=== PATIENT | male | born 1980 | race African-American/Black ===

== ENCOUNTER → 2017-09-30 | Outpatient (CLI) | payer MEDICARE, OTHER ==
[2017-09-30 08:31] LABS: Basophils % (A) 1 %; CH 30.2; CHCM 35.1; Eosinophils # (A) 0.3 k/uL (0-0.7); Eosinophils % (A) 6 %; HCT 40.7 % (39.0-53.0); HGB 13.5 gm/dL (13.0-17.5); Luc # (Auto) 0.09; Luc % (Auto) 2; Lymphocytes # (A) 1.2 k/uL (1.0-4.8); Lymphocytes % (A) 28 %; MCH 28.7 pg (25.0-35.0); MCHC 33.2 g/dL (31.0-37.0); MCV 86.3 fL (80.0-100.0); Mean Platelet Volume 6.6; Monocytes # (A) 0.3 k/uL (0-1.0); Monocytes % (A) 6 %; Neutrophils # (A) 2.5 k/uL (1.3-7.7); Neutrophils % (A) 57 %; RBC 4.72 m/uL (4.30-5.90); RDW 11.8 % (11.5-15.5); WBC 4.4 k/uL (3.8-10.6); WBC (Perox) 4.34
[2017-09-30 08:44] LABS: ALT 56 U/L (21-72); AST 31 U/L (17-59); Alkaline Phosphatase 70 U/L (38-126); Anion Gap 10 mmol/L; Bilirubin, Delta 0.1 mg/dL (0.0-0.2); Blood Urea Nitrogen 20 mg/dL (9-20); Carbon Dioxide 31 mmol/L (22-30); Chloride 103 mmol/L (98-107); Glucose 93 mg/dL (74-99); Non-African American GFR(MDRD) >60 (>60 ml/min/1.73 sqM); Potassium 4.3 mmol/L (3.5-5.1); Sodium 144 mmol/L (137-145); Total Bilirubin 0.9 mg/dL (0.2-1.3); Total Protein 7.5 g/dL (6.3-8.2)
== END | disposition home or self-care (01) ==
LOC: LABWHC1 07:50
PROVIDERS: ATTEND Nurse Practitioner Family
DX: Z51.81 Encounter for therapeutic drug level monitoring (principal); Z79.899 Other long term (current) drug therapy
CPT/HCPCS: 36415; 80048; 80076; 83036; 85025

== ENCOUNTER → 2018-09-19 | Outpatient (CLI) | payer MEDICARE, OTHER ==
[2018-09-19 14:52] LABS: Basophils % (A) 0 %; Eosinophils # (A) 0.2 k/uL (0-0.7); Eosinophils % (A) 5 %; HCT 36.1 % (39.0-53.0); HGB 12.5 gm/dL (13.0-17.5); Lymphocytes # (A) 1.5 k/uL (1.0-4.8); Lymphocytes % (A) 34 %; MCH 29.7 pg (25.0-35.0); MCHC 34.6 g/dL (31.0-37.0); Mean Platelet Volume 6.9; Monocytes # (A) 0.3 k/uL (0-1.0); Monocytes % (A) 7 %; Neutrophils # (A) 2.3 k/uL (1.3-7.7); Neutrophils % (A) 51 %; Platelet Count 164 k/uL (150-450); RDW 12.2 % (11.5-15.5); WBC 4.5 k/uL (3.8-10.6)
[2018-09-19 21:45] LABS: Hemoglobin A1C 4.7 % (4.0-6.0)
[2018-09-19 21:48] LABS: Albumin 4.3 g/dL (3.80-4.90); Albumin/Globulin Ratio 2.05 (1.20-2.10); Anion Gap 8.2 mmol/L (4.00-12.00); Bilirubin, Conjugated 0.2 mg/dL (0.20-0.40); Bilirubin,Unconjugated 0.3 mg/dL; Calcium 9.2 mg/dL (8.7-10.3); Carbon Dioxide 27.8 mmol/L (21.6-31.8); Globulin 2.1 g/dL (2.1-3.7); Potassium 4.1 mmol/L (3.5-5.5); Total Bilirubin 0.5 mg/dL (0.2-1.2); Total Protein 6.4 g/dL (6.2-8.2)
== END | disposition home or self-care (01) ==
LOC: LABWHC1 14:16
PROVIDERS: ATTEND Nurse Practitioner Family
DX: Z51.81 Encounter for therapeutic drug level monitoring (principal); Z79.899 Other long term (current) drug therapy
CPT/HCPCS: 36415; 80048; 80076; 83036; 85025

== ENCOUNTER → 2020-04-30 | Outpatient (CLI) | payer MEDICARE, OTHER ==
[2020-04-30 10:42] LABS: Basophils % (A) 0 %; Eosinophils # (A) 0.2 k/uL (0-0.7); Eosinophils % (A) 4 %; HCT 41.1 % (39.0-53.0); HGB 13.1 gm/dL (13.0-17.5); Lymphocytes # (A) 1.3 k/uL (1.0-4.8); Lymphocytes % (A) 30 %; MCH 27.9 pg (25.0-35.0); MCHC 31.8 g/dL (31.0-37.0); MCV 87.5 fL (80.0-100.0); Mean Platelet Volume 7.7; Monocytes # (A) 0.3 k/uL (0-1.0); Monocytes % (A) 8 %; Neutrophils # (A) 2.5 k/uL (1.3-7.7); Neutrophils % (A) 57 %; Platelet Count 158 k/uL (150-450); RDW 11.8 % (11.5-15.5); WBC 4.4 k/uL (3.8-10.6)
[2020-04-30 18:31] LABS: Hemoglobin A1C 4.7 % (4.0-6.0)
[2020-04-30 19:03] LABS: African American GFR (CKD) 125.1 (60.0-200.0); Albumin 4.5 g/dL (3.80-4.90); Albumin/Globulin Ratio 1.8 (1.60-3.17); Bilirubin, Conjugated 0.3 mg/dL (0.20-0.40); Bilirubin,Unconjugated 0.6 mg/dL; Chol/HDL Ratio 3.54; Globulin 2.5 g/dL (1.6-3.3); LDL Cholesterol,Calculated 78.6 mg/dL (0.0-131.0); Total Bilirubin 0.9 mg/dL (0.3-1.2); VLDL Calculation 15.4 mg/dL (5.00-40.00)
[2020-04-30 19:13] LABS: Prolactin 43.6 ng/mL (2.1-17.7); T4, Free (Free Thyroxine) 1.1 ng/dL (0.80-1.80)
== END | disposition home or self-care (01) ==
LOC: LABWHC1 08:43
PROVIDERS: ATTEND Nurse Practitioner Family
DX: Z51.81 Encounter for therapeutic drug level monitoring (principal); Z79.899 Other long term (current) drug therapy
CPT/HCPCS: 36415; 80061; 80076; 82565; 82947; 83036; 84146; 84439; 84443; 84520; 85025

== ENCOUNTER → 2021-03-13 | Outpatient (CLI) | payer MEDICARE, OTHER ==
--- NOTE | 2021-03-13 11:10 | XR ---
EXAMINATION TYPE: XR hand complete RT DATE OF EXAM: 03/13/2021 CLINICAL HISTORY: pain TECHNIQUE: Frontal, lateral and oblique images of the right hand are obtained. COMPARISON: None. FINDINGS: There is no acute fracture/dislocation evident. The joint spaces appear within normal limi ts. The overlying soft tissue appears unremarkable. IMPRESSION: There is no acute fracture or dislocation ICD 10 NO FRACTURE, INITIAL EVALUATION
== END | disposition home or self-care (01) ==
LOC: RADXRMAIN 10:50
PROVIDERS: ATTEND Family Medicine
DX: M79.641 Pain in right hand (principal)

== ENCOUNTER 2022-06-18 23:03 | Emergency (ER) | payer MEDICARE, OTHER ==
[2022-06-19] MEDS ORDERED: diphenhydrAMINE 50 MG/ML 1 ML VIAL IVP STA (00:27)
[2022-06-19] MEDS ORDERED: LORazepam 2 MG/ML INJ IV STA (00:27)
[2022-06-19 01:23] LABS: Calcium 9.1 mg/dL (8.4-10.2); Potassium 3.9 mmol/L (3.5-5.1); Total Bilirubin 0.5 mg/dL (0.2-1.3); Total Protein 6.5 g/dL (6.3-8.2); Uric Acid 6.4 mg/dL (3.5-8.5)
[2022-06-19 01:33] VITALS: RESP 16
--- NOTE | 2022-06-19 03:03 | ED ---
Psych HPI - General Chief Complaint: Psychiatric Symptoms Stated Complaint: Mental health Time Seen by Provider: 06/18/22 23:20 Source: family, police, EMS Mode of arrival: EMS - History of Present Illness Initial Comments: This patient is a 41-year-old man with history of autism who is brought because going back a number of weeks he has had increasing frequency of episodes of hitting himself. The patient will get stressed when dealing with staff at his [facility] home and then resort to striking objects or sometimes striking himself. He does have history of this but it has been more frequent of late. No change in medications recently. MD Complaint: other -: week(s) Associated Psychiatric Symptoms: other History of same: Yes Quality: getting worse Improves With: none Worsens With: none - Related Data Allergies Allergy/AdvReac Type Severity Reaction Status Date / Time No Known Allergies Allergy Verified 06/18/22 23:15 Review of Systems ROS Statement: Those systems with pertinent positive or pertinent negative responses have been documented in the HPI. ROS Other: All systems not noted in ROS Statement are negative. Constitutional: Denies: fever Respiratory: Denies: cough, dyspnea Cardiovascular: Denies: syncope Gastrointestinal: Denies: vomiting, diarrhea Skin: Denies: rash Past Medical History Additional Past Medical History / Comment(s): Autism History of Any Multi-Drug Resistant Organisms: None Reported Past Surgical History: No Surgical Hx Reported Past Psychological History: Anxiety Smoking Status: Never smoker Past Alcohol Use History: None Reported Past Drug Use History: None Reported General Exam Limitations: language barrier General appearance: alert, in no apparent distress Head exam: Present: atraumatic, normocephalic Eye exam: Present: normal appearance Neck exam: Present: normal inspection, full ROM. Absent: tenderness Respiratory exam: Present: normal lung sounds bilaterally. Absent: respiratory distress, wheezes, rales, rhonchi, stridor, chest wall tenderness Cardiovascular Exam: Present: regular rate, normal rhythm, normal heart sounds. Absent: systolic murmur, diastolic murmur, rubs, gallop GI/Abdominal exam: Present: soft. Absent: distended, tenderness, guarding Extremities exam: Present: normal inspection Back exam: Present: normal inspection Neurological exam: Present: alert Skin exam: Present: warm, dry, intact, normal color. Absent: rash Course Vital Signs 06/19/22 06/19/22 01:32 03:29 Pulse Rate 72 83 Respiratory 16 16 Rate Blood Pressure 102/66 128/68 O2 Sat by Pulse 98 96 Oximetry Medical Decision Making - Medical Decision Making Patient's mother was present and did request that the patient receive some medication with the goal of calling him somewhat. The patient did have some basic lab testing here but they did not desire further invasive testing including no cath UA. Patient was less agitated and they did want to go back to his senior living where they felt he would be soothed by the more familiar surrounding. - Lab Data Result diagrams: 06/19/22 00:50 Lab Results 06/19/22 06/19/22 Range/Units 00:50 00:50 Sodium 140 (137-145) mmol/L Potassium 3.9 (3.5-5.1) mmol/L Chloride 103 (98-107) mmol/L Carbon Dioxide 27 (22-30) mmol/L Anion Gap 10 mmol/L BUN 16 (9-20) mg/dL Creatinine 1.37 H (0.66-1.25) mg/dL Est GFR (CKD-EPI)AfAm 74 (>60 ml/min/1.73 sqM) Est GFR (CKD-EPI)NonAf 64 (>60 ml/min/1.73 sqM) Glucose 89 (74-99) mg/dL Uric Acid 6.4 (3.5-8.5) mg/dL Calcium 9.1 (8.4-10.2) mg/dL Total Bilirubin 0.5 (0.2-1.3) mg/dL AST 33 (17-59) U/L ALT 41 (4-49) U/L Alkaline Phosphatase 98 (38-126) U/L Ammonia 19 (<30) umol/L Total Protein 6.5 (6.3-8.2) g/dL Albumin 4.0 (3.5-5.0) g/dL Disposition Clinical Impression: Autism Disposition: HOME SELF-CARE Condition: Good Is patient prescribed a controlled substance at d/c from ED?: No Referrals: Sammy Gatica MD [Primary Care Provider] - 1-2 days
[2022-06-19 03:31] VITALS: BP 128/68; PULSE 83
== END 2022-06-19 03:31 | disposition home or self-care (01) ==
LOC: EC 23:03 → SUPCPDRO 23:03 → EC 06-19 03:31
DX: F84.0 Autistic disorder (principal); F41.9 Anxiety disorder, unspecified
CPT/HCPCS: 36415; 80053; 82140; 84550; 99285; 96374; 96375; J2060; J1200

== ENCOUNTER 2022-07-07 23:52 | Emergency (ER) | payer MEDICARE, OTHER ==
--- NOTE | 2022-07-07 23:56 | ED ---
Psych HPI - General Source: RN notes reviewed, old records reviewed, Caregiver Mode of arrival: EMS Limitations: altered mental status, physical limitation - History of Present Illness MD Complaint: altered mental status, other (Combative behavior) -: unknown Associated Psychiatric Symptoms: racing thoughts Quality: constant Worsens With: none Context: significant life stressor Treatments Prior to Arrival: placed on mental health hold <Alan Saleem - Last Filed: 07/08/22 07:02> <Alan Hernandez - Last Filed: 07/08/22 12:23> - General Stated Complaint: behavioral issues Time Seen by Provider: 07/07/22 23:54 - History of Present Illness Initial Comments: This is a 5-year-old male to the emergency department for evaluation patient presents today for evaluation of altered mental status. Patient is known to our emergency department. Patient is severely autistic with aggressive behavior. Presents with presenting for today. (Alan Saleem) - Related Data Allergies Allergy/AdvReac Type Severity Reaction Status Date / Time No Known Allergies Allergy Verified 07/08/22 07:17 Review of Systems ROS Other: All systems not noted in ROS Statement are negative. <Alan Saleem - Last Filed: 07/08/22 07:02> ROS Other: All systems not noted in ROS Statement are negative. <Alan Hernandez - Last Filed: 07/08/22 12:23> ROS Statement: Those systems with pertinent positive or pertinent negative responses have been documented in the HPI. Past Medical History Additional Past Medical History / Comment(s): Autism History of Any Multi-Drug Resistant Organisms: None Reported Past Surgical History: No Surgical Hx Reported Past Psychological History: Anxiety Smoking Status: Never smoker Past Alcohol Use History: None Reported Past Drug Use History: None Reported <Alan Saleem - Last Filed: 07/08/22 07:02> General Exam General appearance: alert, in no apparent distress Head exam: Present: atraumatic, normocephalic, normal inspection Eye exam: Present: normal appearance, PERRL, EOMI. Absent: scleral icterus, conjunctival injection, periorbital swelling ENT exam: Present: normal exam, mucous membranes moist Neck exam: Present: normal inspection. Absent: tenderness, meningismus, lymphadenopathy Respiratory exam: Present: normal lung sounds bilaterally. Absent: respiratory distress, wheezes, rales, rhonchi, stridor Cardiovascular Exam: Present: regular rate, normal rhythm, normal heart sounds. Absent: systolic murmur, diastolic murmur, rubs, gallop, clicks GI/Abdominal exam: Present: soft, normal bowel sounds. Absent: distended, tenderness, guarding, rebound, rigid Extremities exam: Present: normal inspection, full ROM, normal capillary refill. Absent: tenderness, pedal edema, joint swelling, calf tenderness Back exam: Present: normal inspection Neurological exam: Present: alert, oriented X3, CN II-XII intact Psychiatric exam: Present: normal affect, normal mood Skin exam: Present: warm, dry, intact, normal color. Absent: rash <Alan Saleem - Last Filed: 07/08/22 07:02> Course <Alan Saleem - Last Filed: 07/08/22 07:02> Vital Signs 07/08/22 07/08/22 07/08/22 00:03 03:10 04:00 Temperature Pulse Rate 89 90 102 H Respiratory 15 16 Rate Blood Pressure 133/80 131/78 122/71 O2 Sat by Pulse 97 Oximetry 07/08/22 09:00 Temperature 97.6 F Pulse Rate 90 Respiratory 18 Rate Blood Pressure 127/77 O2 Sat by Pulse 99 Oximetry - Reevaluation(s) Reevaluation #1: 07/08/22 01:07 Medical records reviewed (Alan Saleem) Procedures - Restraint - Face to Face Restraint Occurrence 1 Patient's Immediate Situation: Endangers self safety, Endangers others' safety Patient's Reaction to the Intervention: Uncooperative, Belligerent, Aggressive, Combative Patient's Medical & Behavioral Condition: Awake, Alert Need to Continue or Terminate Restraint or Seclusion: Continue Face to Face Eval of Restraint Date: 07/08/22 Face to Face Eval of Restraint Time: 11:46 <Alan Hernandez - Last Filed: 07/08/22 12:23> Medical Decision Making - Lab Data Result diagrams: 07/08/22 08:03 07/08/22 08:03 <Alan Hernandez Last Filed: 07/08/22 12:23> - Lab Data Lab Results 07/08/22 07/08/2207/08/22 Range/Units 08:03 08:03 08:03 WBC 5.1 (3.8-10.6) k/uL RBC 4.94 (4.30-5.90) m/uL Hgb 14.6 (13.0-17.5) gm/dL Hct 42.9 (39.0-53.0) % MCV 86.8 (80.0-100.0) fL MCH 29.6 (25.0-35.0) pg MCHC 34.1 (31.0-37.0) g/dL RDW 12.6 (11.5-15.5) % Plt Count 195 (150-450) k/uL MPV 7.3 Neutrophils % 61 % Lymphocytes % 26 % Monocytes % 6 % Eosinophils % 5 % Basophils % 0 % Neutrophils # 3.1 (1.3-7.7) k/uL Lymphocytes # 1.3 (1.0-4.8) k/uL Monocytes # 0.3 (0-1.0) k/uL Eosinophils # 0.3 (0-0.7) k/uL Basophils # 0.0 (0-0.2) k/uL Sodium 141 (137-145) mmol/L Potassium 4.2 (3.5-5.1) mmol/L Chloride 106 (98-107) mmol/L Carbon Dioxide 24 (22-30) mmol/L Anion Gap 11 mmol/L BUN 16 (9-20) mg/dL Creatinine 0.85 (0.66-1.25) mg/dL Est GFR (CKD-EPI)AfAm >90 (>60 ml/min/1.73 sqM) Est GFR (CKD-EPI)NonAf >90 (>60 ml/min/1.73 sqM) Glucose 102 H (74-99) mg/dL Calcium 9.4 (8.4-10.2) mg/dL Total Bilirubin 1.0 (0.2-1.3) mg/dL AST 51 (17-59) U/L ALT 55 H (4-49) U/L Alkaline Phosphatase 92 (38-126) U/L Total Protein 6.9 (6.3-8.2) g/dL Albumin 4.5 (3.5-5.0) g/dL Coronavirus (PCR) Not Detected (Not Detectd) Disposition Is patient prescribed a controlled substance at d/c from ED?: No <Alan Saleem - Last Filed: 07/08/22 07:02> <Alan Hernandez - Last Filed: 07/08/22 12:23> Clinical Impression: Autism, Psychosis, Mood disorder Disposition: TRANSFER TO PSYCH HOSP/UNIT Condition: Fair Referrals: Sammy Gatica MD [Primary Care Provider] - 1-2 days
[2022-07-08 08:32] LABS: Basophils % (A) 0 %; Eosinophils # (A) 0.3 k/uL (0-0.7); Eosinophils % (A) 5 %; HCT 42.9 % (39.0-53.0); HGB 14.6 gm/dL (13.0-17.5); Lymphocytes # (A) 1.3 k/uL (1.0-4.8); Lymphocytes % (A) 26 %; MCH 29.6 pg (25.0-35.0); MCHC 34.1 g/dL (31.0-37.0); MCV 86.8 fL (80.0-100.0); Mean Platelet Volume 7.3; Monocytes # (A) 0.3 k/uL (0-1.0); Monocytes % (A) 6 %; Neutrophils # (A) 3.1 k/uL (1.3-7.7); Neutrophils % (A) 61 %; Platelet Count 195 k/uL (150-450); RBC 4.94 m/uL (4.30-5.90); RDW 12.6 % (11.5-15.5); WBC 5.1 k/uL (3.8-10.6)
[2022-07-08 09:04] LABS: ALT 55 U/L (4-49); AST 51 U/L (17-59); African American GFR (CKD) >90 (>60 ml/min/1.73 sqM); Albumin 4.5 g/dL (3.5-5.0); Alkaline Phosphatase 92 U/L (38-126); Anion Gap 11 mmol/L; Blood Urea Nitrogen 16 mg/dL (9-20); Calcium 9.4 mg/dL (8.4-10.2); Carbon Dioxide 24 mmol/L (22-30); Chloride 106 mmol/L (98-107); Glucose 102 mg/dL (74-99); Non-African American GFR(CKD) >90 (>60 ml/min/1.73 sqM); Potassium 4.2 mmol/L (3.5-5.1); Sodium 141 mmol/L (137-145); Total Protein 6.9 g/dL (6.3-8.2)
[2022-07-08] MEDS ORDERED: OLANZapine 10 MG VIAL IM STA (11:42)
[2022-07-08] MEDS ORDERED: ARIPiprazole 5 MG TAB PO STA (16:03)
[2022-07-08] MEDS ORDERED: FLUoxetine HCL 20 MG CAP PO STA (16:04)
[2022-07-08] MEDS: risperiDONE 2 MG TAB PO SCH (16:24)
[2022-07-08] MEDS: ALPRAZolam 0.5 MG TAB PO SCH ×2 (16:24→21:01)
[2022-07-08] MEDS: MELATONIN 3 MG TABLET PO SCH (20:28)
[2022-07-08] MEDS: BENZTROPINE MESYLATE 1 MG TAB PO SCH (20:28)
[2022-07-09] MEDS ORDERED: FLUoxetine HCL 20 MG CAP PO SCH (09:00)
[2022-07-09] MEDS ORDERED: ARIPiprazole 15 MG TAB PO SCH (09:00)
[2022-07-09] MEDS: BENZTROPINE MESYLATE 1 MG TAB PO SCH ×2 (09:50→23:16)
[2022-07-09] MEDS: risperiDONE 2 MG TAB PO SCH ×4 (09:50→17:06)
[2022-07-09] MEDS: FLUoxetine HCL 20 MG CAP PO SCH (09:50)
[2022-07-09] MEDS: ALPRAZolam 0.5 MG TAB PO SCH ×3 (09:50→23:16)
[2022-07-09 10:32] VITALS: TEMP 98.1
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
[2022-07-09] MEDS ORDERED: CEPHALEXIN 500 MG CAP PO ONE (13:15)
[2022-07-09] MEDS ORDERED: LORazepam 2 MG/ML INJ IM STA (22:28)
[2022-07-09] MEDS: MELATONIN 3 MG TABLET PO SCH (23:16)
[2022-07-09] MEDS: DIVALPROEX ER 500 MG TAB.ER.24H PO SCH (23:16)
[2022-07-10] MEDS ORDERED: OLANZapine 10 MG VIAL IM PRN (12:29)
[2022-07-10] MEDS: FLUoxetine HCL 20 MG CAP PO SCH (13:43)
[2022-07-10] MEDS: ALPRAZolam 0.5 MG TAB PO SCH ×3 (13:43→22:42)
[2022-07-10] MEDS: BENZTROPINE MESYLATE 1 MG TAB PO SCH ×2 (13:43→22:42)
[2022-07-10] MEDS: ARIPiprazole 10 MG TAB PO SCH (13:43)
[2022-07-10] MEDS: risperiDONE 2 MG TAB PO SCH ×3 (13:43→22:42)
[2022-07-10] MEDS: MELATONIN 3 MG TABLET PO SCH (22:42)
[2022-07-10] MEDS: DIVALPROEX ER 500 MG TAB.ER.24H PO SCH (22:42)
[2022-07-11] MEDS: BENZTROPINE MESYLATE 1 MG TAB PO SCH ×2 (11:19→21:00)
[2022-07-11] MEDS: ARIPiprazole 10 MG TAB PO SCH (11:19)
[2022-07-11] MEDS: risperiDONE 2 MG TAB PO SCH ×3 (11:19→15:58)
[2022-07-11] MEDS: FLUoxetine HCL 20 MG CAP PO SCH (11:19)
[2022-07-11] MEDS: ALPRAZolam 0.5 MG TAB PO SCH ×3 (12:25→20:52)
[2022-07-11] MEDS: OLANZapine 10 MG VIAL IM PRN (14:05)
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
--- NOTE | 2022-07-11 18:29 | P.PN ---
Progress Note - Text Progress Note Date: 07/10/22 Psychiatry follow-up note: Interval history: Patient was seen resting in his bed. He appears withdrawn, does not engage in assessment, nonverbal. He is calm, does not become agitated. No suicidal or homicidal ideations expressed. No auditory or visual hallucinations reported. No side effects from medications reported. Nurse reports he was physically aggressive overnight and received PRN Ativan 2 mg IM x 1, and was drowsy this morning so his morning medications were held until around noon time. No medication side effects reported. Mental status exam: General Appearance: Patient appears stated age, appears withdrawn, fair hygiene. Behavior: Patient is calmly lying down in bed without any agitated behavior. Speech: Patient is noted to be nonverbal. Mood/Affect: Unable to assess patient mood. Affect is blunted. Suicidality/Homicidality: Unable to assess due to patient being nonverbal Perceptions: Unable to assess due to patient being nonverbal Though content/process: Unable to assess due to patient being nonverbal Memory and concentration: Unable to assess due to patient being nonverbal Judgment and insight: Grossly poor Assessment/Plan: Continue with current diagnosis. -At this time patient DOES meet criteria for inpatient treatment at a hospital that can facilitate his developmental delay and autism spectrum disorder. -Patient DOES NOT have decision making capacity at this time and is unable to reason through and communicate/appreciate the risks, benefits and alternatives to treatment. -Patient will be maintained on current psychotropic medication regimen. -Monitor for medication compliance and for any psychotropic medication side effects. -Continue 1:1 sitter for safety -Cannot leave AMA at this time. Patient will need a petition and certification if attempting to leave AMA. -Will continue to follow along -When medically stable, patient is eligible for transfer to a facility for his needs when available.
[2022-07-11] MEDS ORDERED: DIVALPROEX ER 500 MG TAB.ER.24H PO SCH (21:00)
[2022-07-11] MEDS: MELATONIN 3 MG TABLET PO SCH (21:00)
[2022-07-11] MEDS ORDERED: ZIPRASIDONE 20 MG VIAL IM STA (21:02)
[2022-07-11] MEDS ORDERED: LORazepam 2 MG/ML INJ IM STA (21:03)
[2022-07-12] MEDS: BENZTROPINE MESYLATE 1 MG TAB PO SCH ×2 (11:00→20:23)
--- NOTE | 2022-07-12 12:51 | P.PN ---
Progress Note - Text Progress Note Date: 07/12/22 Interval History: Patient was seen resting in bed. Patient is nonverbal and does not engage in the psychiatric interview. He has been noted by his nurse to have had intermittent episodes of agitation requiring IM and initiation of medications. He did require restraints yesterday along with IM administration of medications in order to calm down. As per staff report, the patient otherwise remains primarily calm and sleeping. Mental Status Exam: General Appearance: Patient appears to be stated age, and is currently lying down in bed without any agitated behavior. Behavior: Patient is calmly seated without any agitated behavior. Breathing appears normal. Speech: Patient is nonverbal. Mood/Affect: Unable to assess patient mood. Affect is blunted. Suicidality/Homicidality: Unable to assess due to patient being nonverbal Perceptions: Unable to assess due to patient being nonverbal Though content/process: Unable to assess due to patient being nonverbal Memory and concentration: Unable to assess due to patient being nonverbal Judgment and insight: Grossly poor Vital Signs Temp 98.1 F 07/09/22 10:30 Pulse 82 07/09/22 10:30 Resp 16 07/11/22 10:00 BP 117/88 07/09/22 10:30 Pulse Ox 99 07/09/22 10:30 FiO2 Assessment Autism spectrum disorder with agitated behaviors Plan: -Patient continues to meet criteria for inpatient admission due to uncontrolled agitated behaviors. -Medications: Continue Abilify 10 mg by mouth daily for mood augmentation and for prolactin side effects. Increase Depakote ER to 1500 mg by mouth at bedtime for mood stabilization Continue Risperdal 4 mg in the morning, 2 mg at noon, and 4 mg in the afternoon agitated behaviors. CBC, CMP, and Depakote level ordered for Tuesday. -When necessary Zyprexa for agitation/aggression. -Psychiatry will loosely follow at this point. Please call us or reconsult us if necessary. -When medically stable, patient is eligible for transfer to a facility for his needs when available.
[2022-07-12] MEDS: risperiDONE 2 MG TAB PO SCH ×3 (13:42→20:25)
[2022-07-12] MEDS: ALPRAZolam 0.5 MG TAB PO SCH ×3 (13:42→21:46)
[2022-07-12] MEDS: ARIPiprazole 10 MG TAB PO SCH (13:45)
[2022-07-12] MEDS: FLUoxetine HCL 20 MG CAP PO SCH (13:45)
[2022-07-12] MEDS: MELATONIN 3 MG TABLET PO SCH (20:23)
[2022-07-12] MEDS: DIVALPROEX ER 500 MG TAB.ER.24H PO SCH (20:23)
[2022-07-12] MEDS: OLANZapine 10 MG VIAL IM PRN (21:46)
[2022-07-13] MEDS: ALPRAZolam 0.5 MG TAB PO SCH ×2 (08:41→22:04)
[2022-07-13] MEDS: FLUoxetine HCL 20 MG CAP PO SCH (08:41)
[2022-07-13] MEDS: BENZTROPINE MESYLATE 1 MG TAB PO SCH ×2 (08:41→16:55)
[2022-07-13] MEDS: risperiDONE 2 MG TAB PO SCH ×2 (08:42→16:54)
[2022-07-13] MEDS: ARIPiprazole 10 MG TAB PO SCH (08:46)
[2022-07-13] MEDS: MELATONIN 3 MG TABLET PO SCH (16:55)
[2022-07-13] MEDS: DIVALPROEX ER 500 MG TAB.ER.24H PO SCH ×3 (16:56→17:03)
[2022-07-14] MEDS: OLANZapine 10 MG VIAL IM PRN (03:07)
[2022-07-14] MEDS: risperiDONE 2 MG TAB PO SCH ×3 (03:38→13:10)
[2022-07-14] MEDS: ALPRAZolam 0.5 MG TAB PO SCH (03:42)
[2022-07-14 07:46] LABS: Basophils % (A) 0 %; Eosinophils # (A) 0.4 k/uL (0-0.7); Eosinophils % (A) 5 %; HCT 42.8 % (39.0-53.0); HGB 13.7 gm/dL (13.0-17.5); Lymphocytes # (A) 1.9 k/uL (1.0-4.8); Lymphocytes % (A) 23 %; MCH 28.1 pg (25.0-35.0); MCV 87.6 fL (80.0-100.0); Mean Platelet Volume 7.3; Monocytes # (A) 0.6 k/uL (0-1.0); Monocytes % (A) 7 %; Neutrophils # (A) 5.4 k/uL (1.3-7.7); Neutrophils % (A) 64 %; Platelet Count 177 k/uL (150-450); RBC 4.88 m/uL (4.30-5.90); RDW 12.1 % (11.5-15.5); WBC 8.4 k/uL (3.8-10.6)
[2022-07-14] MEDS: BENZTROPINE MESYLATE 1 MG TAB PO SCH ×2 (08:00→21:10)
[2022-07-14] MEDS: ARIPiprazole 10 MG TAB PO SCH (08:00)
[2022-07-14] MEDS: FLUoxetine HCL 20 MG CAP PO SCH (08:00)
[2022-07-14 08:03] LABS: ALT 38 U/L (4-49); AST 35 U/L (17-59); African American GFR (CKD) >90 (>60 ml/min/1.73 sqM); Alkaline Phosphatase 93 U/L (38-126); Anion Gap 9 mmol/L; Blood Urea Nitrogen 10 mg/dL (9-20); Carbon Dioxide 29 mmol/L (22-30); Chloride 103 mmol/L (98-107); Glucose 94 mg/dL (74-99); Non-African American GFR(CKD) >90 (>60 ml/min/1.73 sqM); Potassium 4.2 mmol/L (3.5-5.1); Sodium 141 mmol/L (137-145); Total Bilirubin 0.6 mg/dL (0.2-1.3); Total Protein 6.4 g/dL (6.3-8.2)
[2022-07-14 09:05] LABS: Valproic Acid (Depakene) 71.2 ug/mL
--- NOTE | 2022-07-14 13:41 | P.PN ---
Progress Note - Text Progress Note Date: 07/14/22 Interval History: Patient was seen resting in bed. Patient is nonverbal and does not engage in the psychiatric interview. The patient has been noted to engage in self-injurious behaviors as he was hitting his head against the bed rail and moving the pets and the rails. This occurred at approximately 3 AM this morning. He did require the use of restraints. Mental Status Exam: General Appearance: Patient appears to be stated age, and is currently lying down in bed without any agitated behavior. Behavior: Patient is calmly seated without any agitated behavior. Breathing appears normal. Speech: Patient is nonverbal. Mood/Affect: Unable to assess patient mood. Affect is blunted. Suicidality/Homicidality: Unable to assess due to patient being nonverbal Perceptions: Unable to assess due to patient being nonverbal Though content/process: Unable to assess due to patient being nonverbal Memory and concentration: Unable to assess due to patient being nonverbal Judgment and insight: Grossly poor Assessment Autism spectrum disorder with agitated behaviors Plan: -Patient continues to meet criteria for inpatient admission due to uncontrolled agitated behaviors. -Medications: Discontinue Abilify. Decrease Risperdal to 3 mg twice daily. Start Clozapine 25 mg twice daily for mood stabilization. Continue Depakote ER to 1500 mg by mouth at bedtime for mood stabilization Start Klonopin 1 mg three times a day for agitation/anxiety. Discontinue xanax. -When necessary Zyprexa for agitation/aggression. -Psychiatry will follow. -When medically stable, patient is eligible for transfer to a facility for his needs when available.
[2022-07-14] MEDS ORDERED: clonazePAM 0.5 MG TAB PO SCH (16:00)
[2022-07-14] MEDS: risperiDONE 1 MG TAB PO SCH (16:13)
[2022-07-14] MEDS: clonazePAM 1 MG TAB PO SCH ×2 (16:13→21:26)
[2022-07-14] MEDS: cloZAPine 25 MG TAB PO SCH (20:55)
[2022-07-14] MEDS: MELATONIN 3 MG TABLET PO SCH (21:10)
[2022-07-15] MEDS: cloZAPine 25 MG TAB PO SCH ×2 (09:12→21:15)
[2022-07-15] MEDS: BENZTROPINE MESYLATE 1 MG TAB PO SCH ×2 (09:12→21:14)
[2022-07-15] MEDS: FLUoxetine HCL 20 MG CAP PO SCH (09:12)
[2022-07-15] MEDS: risperiDONE 1 MG TAB PO SCH ×2 (09:12→14:50)
[2022-07-15] MEDS: clonazePAM 1 MG TAB PO SCH ×3 (09:12→22:00)
--- NOTE | 2022-07-15 12:21 | P.PN ---
Progress Note - Text Progress Note Date: 07/15/22 Interval History: Patient was seen resting in bed. Patient is nonverbal and does not engage in the psychiatric interview. Patient is currently sleeping calmly. The patient was noted to be agitated yesterday and required the use of restraints yesterday morning. However, the patient has been noted to be calm and cooperative albeit immediately sleeping throughout the day today. He has been in adherent with his medications. Mental Status Exam: General Appearance: Patient appears to be stated age, and is currently lying down in bed without any agitated behavior. Behavior: Patient is calmly seated without any agitated behavior. Breathing appears normal. Speech: Patient is nonverbal. Mood/Affect: Unable to assess patient mood. Affect is blunted. Suicidality/Homicidality: Unable to assess due to patient being nonverbal Perceptions: Unable to assess due to patient being nonverbal Though content/process: Unable to assess due to patient being nonverbal Memory and concentration: Unable to assess due to patient being nonverbal Judgment and insight: Grossly poor Vital Signs Temp 98.1 F 07/13/22 10:07 Pulse 86 07/13/22 17:00 Resp 16 07/15/22 01:56 BP 126/74 07/13/22 17:00 Pulse Ox 96 07/13/22 17:00 FiO2 Assessment Autism spectrum disorder with agitated behaviors Plan: -Patient continues to meet criteria for inpatient admission due to uncontrolled agitated behaviors. -Medications: We will increase caused into 25 mg in the morning and 50 g at bedtime for mood stabilization. Decrease Risperdal to 2 mg by mouth twice a day for mood stabilization/psychosis Continue Depakote ER to 1500 mg by mouth at bedtime for mood stabilization Continue Klonopin 1 mg three times a day for agitation/anxiety -When necessary Zyprexa for agitation/aggression. -Psychiatry will follow. -When medically stable, patient is eligible for transfer to a facility for his needs when available.
[2022-07-15] MEDS: MELATONIN 3 MG TABLET PO SCH (21:14)
[2022-07-16] MEDS: risperiDONE 1 MG TAB PO SCH ×2 (07:44→17:15)
[2022-07-16] MEDS: cloZAPine 25 MG TAB PO SCH ×2 (08:09→21:40)
[2022-07-16] MEDS: FLUoxetine HCL 20 MG CAP PO SCH (08:09)
[2022-07-16] MEDS: BENZTROPINE MESYLATE 1 MG TAB PO SCH ×2 (08:09→20:45)
[2022-07-16] MEDS: clonazePAM 1 MG TAB PO SCH ×3 (08:09→21:39)
--- NOTE | 2022-07-16 12:26 | P.PN ---
Progress Note - Text Progress Note Date: 07/16/22 Interval History: Patient was seen resting in bed. Patient is nonverbal and does not engage in the psychiatric interview. Patient continues to sleep calmly. The patient has not required any restraints and has been noted by staff to be directable and calm. He has been adherent with his medications and appears to be tolerating them well. Mental Status Exam: General Appearance: Patient appears to be stated age, and is currently lying down in bed without any agitated behavior. Behavior: Patient is calmly seated without any agitated behavior. Breathing appears normal. Speech: Patient is nonverbal. Mood/Affect: Unable to assess patient mood. Affect is blunted. Suicidality/Homicidality: Unable to assess due to patient being nonverbal Perceptions: Unable to assess due to patient being nonverbal Though content/process: Unable to assess due to patient being nonverbal Memory and concentration: Unable to assess due to patient being nonverbal Judgment and insight: Grossly poor Vital Signs Temp 98.1 F 07/13/22 10:07 Pulse 64 07/15/22 22:11 Resp 16 07/15/22 22:11 BP 136/84 07/15/22 22:11 Pulse Ox 92 L 07/15/22 22:11 FiO2 Assessment Autism spectrum disorder with agitated behaviors Plan: -Patient currently does not meet criteria for inpatient psychiatric admission as he has not displayed behaviors that are detrimental over the last 48-72 hours. -Medications: Continue Clozaril 25 mg in the morning and 50 g at bedtime for mood stabilization. Continue Risperdal to 2 mg by mouth twice a day for mood stabilization/psychosis - patient may not require dual antipsychotic treatment in the near future. This is to be managed by [facility] in the outpatient setting. Continue Depakote ER to 1500 mg by mouth at bedtime for mood stabilization Continue Klonopin 1 mg three times a day for agitation/anxiety -When necessary Zyprexa for agitation/aggression. -Recommend outpatient psychiatric follow-up. -Patient is cleared psychiatrically for discharge
[2022-07-16] MEDS: MELATONIN 3 MG TABLET PO SCH (20:45)
[2022-07-16] MEDS: DIVALPROEX ER 500 MG TAB.ER.24H PO SCH (20:46)
[2022-07-17] MEDS: OLANZapine 10 MG VIAL IM PRN ×2 (01:40→23:30)
[2022-07-17] MEDS: risperiDONE 1 MG TAB PO SCH ×2 (09:48→16:00)
[2022-07-17] MEDS: BENZTROPINE MESYLATE 1 MG TAB PO SCH (09:48)
[2022-07-17] MEDS: FLUoxetine HCL 20 MG CAP PO SCH (09:50)
[2022-07-17] MEDS: clonazePAM 1 MG TAB PO SCH ×2 (09:50→16:00)
[2022-07-17] MEDS: cloZAPine 25 MG TAB PO SCH (10:44)
[2022-07-18] MEDS: DIVALPROEX ER 500 MG TAB.ER.24H PO SCH ×2 (02:13→21:04)
[2022-07-18] MEDS: OLANZapine 10 MG VIAL IM PRN (02:13)
[2022-07-18] MEDS: clonazePAM 1 MG TAB PO SCH ×4 (02:14→21:04)
[2022-07-18] MEDS: MELATONIN 3 MG TABLET PO SCH ×2 (02:15→21:04)
[2022-07-18] MEDS: BENZTROPINE MESYLATE 1 MG TAB PO SCH ×3 (02:15→21:05)
[2022-07-18] MEDS: cloZAPine 25 MG TAB PO SCH ×3 (02:15→21:05)
[2022-07-18] MEDS: FLUoxetine HCL 20 MG CAP PO SCH (10:00)
[2022-07-18] MEDS: risperiDONE 1 MG TAB PO SCH ×2 (10:00→16:56)
--- NOTE | 2022-07-18 13:31 | ED ---
Medical Decision Making - Medical Decision Making Patient had been observed for 253 hours in the emergency department and ultimately was discharged back to the [facility]. He's been released from psychiatric services and is returning to his [facility]. - Lab Data Result diagrams: 07/14/22 08:00 07/14/22 08:00 Lab Results 07/08/22 07/08/22 07/08/22 Range/Units 08:03 08:03 08:03 WBC 5.1 (3.8-10.6) k/uL RBC 4.94 (4.30-5.90) m/uL Hgb 14.6 (13.0-17.5) gm/dL Hct 42.9 (39.0-53.0) % MCV 86.8 (80.0-100.0) fL MCH 29.6 (25.0-35.0) pg MCHC 34.1 (31.0-37.0) g/dL RDW 12.6 (11.5-15.5) % Plt Count 195 (150-450) k/uL MPV 7.3 Neutrophils % 61 % Lymphocytes % 26 % Monocytes % 6 % Eosinophils % 5 % Basophils % 0 % Neutrophils # 3.1 (1.3-7.7) k/uL Lymphocytes # 1.3 (1.0-4.8) k/uL Monocytes # 0.3 (0-1.0) k/uL Eosinophils # 0.3 (0-0.7) k/uL Basophils # 0.0 (0-0.2) k/uL Sodium 141 (137-145) mmol/L Potassium 4.2 (3.5-5.1) mmol/L Chloride 106 (98-107) mmol/L Carbon Dioxide 24 (22-30) mmol/L Anion Gap 11 mmol/L BUN 16 (9-20) mg/dL Creatinine 0.85 (0.66-1.25) mg/dL Est GFR (CKD-EPI)AfAm >90 (>60 ml/min/1.73 sqM) Est GFR (CKD-EPI)NonAf >90 (>60 ml/min/1.73 sqM) Glucose 102 H (74-99) mg/dL Calcium 9.4 (8.4-10.2) mg/dL Total Bilirubin 1.0 (0.2-1.3) mg/dL AST 51 (17-59) U/L ALT 55 H (4-49) U/L Alkaline Phosphatase 92 (38-126) U/L Total Protein 6.9 (6.3-8.2) g/dL Albumin 4.5 (3.5-5.0) g/dL Valproic Acid ug/mL Coronavirus (PCR) Not Detected (Not Detectd) 07/14/22 07/14/22 Range/Units 08:00 08:00 WBC 8.4 (3.8-10.6) k/uL RBC 4.88 (4.30-5.90) m/uL Hgb 13.7 (13.0-17.5) gm/dL Hct 42.8 (39.0-53.0) % MCV 87.6 (80.0-100.0) fL MCH 28.1 (25.0-35.0) pg MCHC 32.0 (31.0-37.0) g/dL RDW 12.1 (11.5-15.5) % Plt Count 177 (150-450) k/uL MPV 7.3 Neutrophils % 64 % Lymphocytes % 23 % Monocytes % 7 % Eosinophils % 5 % Basophils % 0 % Neutrophils # 5.4 (1.3-7.7) k/uL Lymphocytes # 1.9 (1.0-4.8) k/uL Monocytes # 0.6 (0-1.0) k/uL Eosinophils # 0.4 (0-0.7) k/uL Basophils # 0.0 (0-0.2) k/uL Sodium 141 (137-145) mmol/L Potassium 4.2 (3.5-5.1) mmol/L Chloride 103 (98-107) mmol/L Carbon Dioxide 29 (22-30) mmol/L Anion Gap 9 mmol/L BUN 10 (9-20) mg/dL Creatinine 0.92 (0.66-1.25) mg/dL Est GFR (CKD-EPI)AfAm >90 (>60 ml/min/1.73 sqM) Est GFR (CKD-EPI)NonAf >90 (>60 ml/min/1.73 sqM) Glucose 94 (74-99) mg/dL Calcium 9.0 (8.4-10.2) mg/dL Total Bilirubin 0.6 (0.2-1.3) mg/dL AST 35 (17-59) U/L ALT 38 (4-49) U/L Alkaline Phosphatase 93 (38-126) U/L Total Protein 6.4 (6.3-8.2) g/dL Albumin 4.0 (3.5-5.0) g/dL Valproic Acid 71.2 ug/mL Coronavirus (PCR) (Not Detectd) Disposition Clinical Impression: Autism, Psychosis, Mood disorder Disposition: HOME SELF-CARE Condition: Fair Is patient prescribed a controlled substance at d/c from ED?: No Referrals: Sammy Gatica MD [Primary Care Provider] - 1-2 days Time of Disposition: 13:31
[2022-07-19] MEDS: risperiDONE 1 MG TAB PO SCH (12:37)
[2022-07-19] MEDS: FLUoxetine HCL 20 MG CAP PO SCH (12:37)
[2022-07-19] MEDS: BENZTROPINE MESYLATE 1 MG TAB PO SCH (12:37)
[2022-07-19] MEDS: clonazePAM 1 MG TAB PO SCH ×2 (12:38→12:39)
[2022-07-19] MEDS: cloZAPine 25 MG TAB PO SCH (12:39)
[2022-07-19 12:45] VITALS: BP 122/84; PULSE 86; RESP 18
== END 2022-07-19 12:44 | disposition home or self-care (01) ==
LOC: EC 23:52
DX: F84.0 Autistic disorder (principal); F29 Unspecified psychosis not due to a substance or known physiological condition; F39 Unspecified mood [affective] disorder; F41.9 Anxiety disorder, unspecified
CPT/HCPCS: 36415; 80053; 85025; 87635; 99285; 96372 ×6; J2060 ×2; S0136 ×4; J3486

== ENCOUNTER 2022-10-09 09:24 | Emergency (ER) | payer MEDICARE, OTHER ==
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
[2022-10-09 10:15] VITALS: RESP 18
[2022-10-09 13:47] VITALS: BP 130/72; PULSE 79; TEMP 98
== END 2022-10-09 13:47 | disposition home or self-care (01) ==
LOC: EC 09:24 → EEVIPCON 09:24 → EC 13:47
DX: F84.0 Autistic disorder (principal); R45.1 Restlessness and agitation; F41.9 Anxiety disorder, unspecified
CPT/HCPCS: 82075; 99285

== ENCOUNTER 2022-10-18 16:20 | Emergency (ER) | payer MEDICARE, OTHER ==
--- NOTE | 2022-10-18 17:12 | ED ---
General Adult HPI - General Source: EMS Mode of arrival: EMS Limitations: altered mental status <Laverne Trinidad - Last Filed: 10/18/22 19:19> <Luis M Leone - Last Filed: 10/18/22 22:42> <Rigo Soto - Last Filed: 10/23/22 14:28> - General Chief complaint: Psychiatric Symptoms Stated complaint: Behavorial issues Time Seen by Provider: 10/18/22 16:32 - History of Present Illness Initial comments: 41 year old -[place]wegian male with past medical history of autism presents to the emergency department via EMS for increased aggression. History is limited as patient is non-verbal. EMS reports the patient was recently moved into a new penit[facility]iary and has shown more signs of aggression. (Laverne Trinidad) - Related Data Home Medications Medication Instructions Recorded Confirmed Acetylcysteine [Nac] 1,200 mg PO BID@0800,199907/08/22 10/18/22 Cetirizine HCl [Zyrtec] 10 mg PO DAILY@79907/08/22 10/18/22 Fluocinonide 0.05% [Lidex 0.05% 1 applic TOPICAL BID PRN 07/08/22 10/18/22 cream] Fluticasone Nasal [place] [Flonase 2 spr EA NOSTRIL DAILY@79907/08/22 10/18/22 Nasal [place]] Mupirocin 2% Oint [Bactroban 2% 1 applic TOPICAL BID@08,199907/08/22 10/18/22 Oint] Vitamin B Complex 1 cap PO DAILY@79907/08/22 10/18/22 cefaCLOR [Ceclor] 500 mg PO BID@0800,199907/08/22 10/18/22 Clindamycin Phosphate [Cleocin T 1 applic TOPICAL BID PRN 10/18/22 10/18/22 1%] Divalproex ER [Depakote ER] 1,500 mg PO HS@199910/18/22 10/18/22 Docusate [Colace] 100 mg PO BID PRN 10/18/22 10/18/22 LORazepam [Ativan] 1 mg PO Q6H PRN 10/18/22 10/18/22 cloZAPine [Clozaril] 200 mg PO HS@199910/18/22 10/18/22 Previous Rx's Medication Instructions Recorded Divalproex ER [Depakote ER] 1,500 mg PO HS #42 tab 10/23/22 LORazepam [Ativan] 2 mg PO TID PRN 3 Days #9 tab 10/23/22 chlorproMAZINE HCL [Thorazine] 50 mg PO QID PRN #5 tablet 10/23/22 cloZAPine [Clozapine] 200 mg PO HS #14 tab 10/23/22 diphenhydrAMINE [Benadryl] 50 mg PO QID PRN #5 capsule 10/23/22 Allergies Allergy/AdvReac Type Severity Reaction Status Date / Time hay fever Allergy Unknown Uncoded 10/18/22 19:31 Review of Systems ROS Other: All systems not noted in ROS Statement are negative. <Laverne Trinidad - Last Filed: 10/18/22 19:19> ROS Other: All systems not noted in ROS Statement are negative. <Luis M Leone - Last Filed: 10/18/22 22:42> ROS Other: All systems not noted in ROS Statement are negative. <Rigo Soto - Last Filed: 10/23/22 14:28> ROS Statement: Those systems with pertinent positive or pertinent negative responses have been documented in the HPI. Past Medical History Additional Past Medical History / Comment(s): Autism History of Any Multi-Drug Resistant Organisms: None Reported Past Surgical History: No Surgical Hx Reported Past Psychological History: Anxiety Smoking Status: Never smoker Past Alcohol Use History: None Reported Past Drug Use History: None Reported <Laverne Trinidad - Last Filed: 10/18/22 19:19> General Exam Limitations: altered mental status General appearance: alert, in no apparent distress Head exam: Present: atraumatic, normocephalic, normal inspection Eye exam: Present: normal appearance, PERRL, EOMI. Absent: scleral icterus, conjunctival injection, periorbital swelling ENT exam: Present: normal exam, mucous membranes moist Neck exam: Present: normal inspection. Absent: tenderness, meningismus, lymphadenopathy Respiratory exam: Present: normal lung sounds bilaterally. Absent: respiratory distress, wheezes, rales, rhonchi, stridor Cardiovascular Exam: Present: normal rhythm, tachycardia, normal heart sounds. Absent: systolic murmur, diastolic murmur, rubs, gallop, clicks GI/Abdominal exam: Present: soft, normal bowel sounds. Absent: distended, tenderness, guarding, rebound, rigid Extremities exam: Present: normal inspection, full ROM, normal capillary refill. Absent: tenderness, pedal edema, joint swelling, calf tenderness Back exam: Present: normal inspection Neurological exam: Present: alert, CN II-XII intact Psychiatric exam: Present: normal affect, agitated Skin exam: Present: warm, dry, intact, normal color. Absent: rash <Laverne Trinidad - Last Filed: 10/18/22 19:19> Course <Laverne Trinidad - Last Filed: 10/18/22 19:19> Vital Signs 10/18/22 10/19/22 10/19/22 16:33 02:41 12:00 Temperature 99.8 F H 99.0 F Pulse Rate 120 H 100 Respiratory 18 14 18 Rate Blood Pressure 132/93 102/68 O2 Sat by Pulse 98 97 Oximetry 10/19/22 10/19/22 10/19/22 13:27 14:04 15:00 Temperature 97.6 F Pulse Rate 130 H Respiratory 18 18 18 Rate Blood Pressure 114/71 O2 Sat by Pulse 96 Oximetry 10/19/22 10/19/22 10/19/22 17:00 19:44 22:00 Temperature 98.1 F Pulse Rate 110 H Respiratory 18 18 18 Rate Blood Pressure 125/75 O2 Sat by Pulse 98 Oximetry 10/20/22 10/20/22 10/20/22 01:23 04:00 06:00 Temperature Pulse Rate Respiratory 16 16 16 Rate Blood Pressure O2 Sat by Pulse Oximetry 10/20/22 10/21/22 10/22/22 23:27 18:35 02:33 Temperature 97.9 F Pulse Rate 100 71 Respiratory 18 18 18 Rate Blood Pressure 123/83 131/83 O2 Sat by Pulse 100 Oximetry 10/22/22 10/22/22 10/22/22 03:18 04:15 05:15 Temperature Pulse Rate Respiratory 18 18 18 Rate Blood Pressure O2 Sat by Pulse Oximetry 10/22/22 10/23/22 10/23/22 09:04 09:20 13:00 Temperature 97.6 F 97.6 F Pulse Rate 100 104 H Respiratory 18 18 18 Rate Blood Pressure 100/65 109/75 O2 Sat by Pulse 95 97 Oximetry - Reevaluation(s) Reevaluation #1: 10/18/22 17:48 Pt re-evaluted. Pt becoming increasingly aggressive with staff. haldol and ativan ordered. patient moved to room 12. sitter at bedside. Awaiting return from EPS (Laverne Trinidad) Medical Decision Making <Laverne Trinidad - Last Filed: 10/18/22 19:19> - Lab Data Result diagrams: 10/18/22 21:14 10/18/22 21:14 <Luis M Leone - Last Filed: 10/18/22 22:42> - Lab Data Result diagrams: 10/18/22 21:14 10/18/22 21:14 <Rigo Soto - Last Filed: 10/23/22 14:28> - Medical Decision Making 41-year-old male instability ED emergency department for increased aggression. Patient was seen and evaluated. Awaiting for medical clearance. I discussed the case with Dr. Lozano who agrees to the patient for continuation of care in the emergency department. (Laverne Trinidad) Report was received from physician senior administrative assistant. Patient apparently is [facility] with history of autism. He became somewhat aggressive in the emergency department and received Zyprexa with relief of agitation. Additional Zyprexa will be ordered on a when necessary basis. Laboratory is reviewed and is essentially within normal limits with negative alcohol level. Urine drug screen is pending. It is felt as though patient is medically cleared for further psychiatry evaluation. (Luis M Leone) Patient was seen with mental health services. Plan for discharge with medications. Patient was reevaluated. Patient is stable at this time. Prescriptions were provided as requested by psychiatry. (Rigo Soto) - Lab Data Lab Results 10/18/22 10/18/22 10/18/22 Range/Units 21:14 21:14 21:14 WBC 7.6 (3.8-10.6) k/uL RBC 4.87 (4.30-5.90) m/uL Hgb 14.9 (13.0-17.5) gm/dL Hct 40.8 (39.0-53.0) % MCV 83.7 (80.0-100.0) fL MCH 30.6 (25.0-35.0) pg MCHC 36.5 (31.0-37.0) g/dL RDW 12.1 (11.5-15.5) % Plt Count 128 L (150-450) k/uL MPV 9.2 Neutrophils % 66 % Lymphocytes % 21 % Monocytes % 10 % Eosinophils % 1 % Basophils % 1 % Neutrophils # 5.0 (1.3-7.7) k/uL Lymphocytes # 1.6 (1.0-4.8) k/uL Monocytes # 0.8 (0-1.0) k/uL Eosinophils # 0.1 (0-0.7) k/uL Basophils # 0.0 (0-0.2) k/uL Sodium 142 (137-145) mmol/L Potassium 4.4 (3.5-5.1) mmol/L Chloride 106 (98-107) mmol/L Carbon Dioxide 26 (22-30) mmol/L Anion Gap 10 mmol/L BUN 14 (9-20) mg/dL Creatinine 0.75 (0.66-1.25) mg/dL Est GFR (CKD-EPI)AfAm >90 (>60 ml/min/1.73 sqM) Est GFR (CKD-EPI)NonAf >90 (>60 ml/min/1.73 sqM) Glucose 89 (74-99) mg/dL Calcium 9.4 (8.4-10.2) mg/dL Salicylates <1.0 mg/dL Urine Opiates Screen (NotDetected) Ur Oxycodone Screen (NotDetected) Urine Methadone Screen (NotDetected) Ur Propoxyphene Screen (NotDetected) Acetaminophen <10.0 ug/mL Ur Barbiturates Screen (NotDetected) Valproic Acid 76.1 ug/mL U Tricyclic Antidepress (NotDetected) Ur Phencyclidine Scrn (NotDetected) Clozapine (200-700) ng/mL Norclozapine (200-700) ng/mL Ur Amphetamines Screen (NotDetected) U Methamphetamines Scrn (NotDetected) U Benzodiazepines Scrn (NotDetected) Urine Cocaine Screen (NotDetected) U Marijuana (THC) Screen (NotDetected) Serum Alcohol <10 mg/dL Coronavirus (PCR) (Not Detectd) Influenza Type A (PCR) (Not Detectd) Influenza Type B (PCR) (Not Detectd) RSV (PCR) (Not Detectd) SARS-CoV-2 (PCR) (Not Detectd) 10/19/22 10/19/22 10/19/22 Range/Units 02:32 02:32 13:41 WBC (3.8-10.6) k/uL RBC (4.30-5.90) m/uL Hgb (13.0-17.5) gm/dL Hct (39.0-53.0) % MCV (80.0-100.0) fL MCH (25.0-35.0) pg MCHC (31.0-37.0) g/dL RDW (11.5-15.5) % Plt Count (150-450) k/uL MPV Neutrophils % % Lymphocytes % % Monocytes % % Eosinophils % % Basophils % % Neutrophils # (1.3-7.7) k/uL Lymphocytes # (1.0-4.8) k/uL Monocytes # (0-1.0) k/uL Eosinophils # (0-0.7) k/uL Basophils # (0-0.2) k/uL Sodium (137-145) mmol/L Potassium (3.5-5.1) mmol/L Chloride (98-107) mmol/L Carbon Dioxide (22-30) mmol/L Anion Gap mmol/L BUN (9-20) mg/dL Creatinine (0.66-1.25) mg/dL Est GFR (CKD-EPI)AfAm (>60 ml/min/1.73 sqM) Est GFR (CKD-EPI)NonAf (>60 ml/min/1.73 sqM) Glucose (74-99) mg/dL Calcium (8.4-10.2) mg/dL Salicylates mg/dL Urine Opiates Screen Not Detected (NotDetected) Ur Oxycodone Screen Not Detected (NotDetected) Urine Methadone Screen Not Detected (NotDetected) Ur Propoxyphene Screen Not Detected (NotDetected) Acetaminophen ug/mL Ur Barbiturates Screen Not Detected (NotDetected) Valproic Acid ug/mL U Tricyclic Antidepress Detected H (NotDetected) Ur Phencyclidine Scrn Not Detected (NotDetected) Clozapine 101 L (200-700) ng/mL Norclozapine 43 L (200-700) ng/mL Ur Amphetamines Screen Not Detected (NotDetected) U Methamphetamines Scrn Not Detected (NotDetected) U Benzodiazepines Scrn Detected H (NotDetected) Urine Cocaine Screen Not Detected (NotDetected) U Marijuana (THC) Screen Not Detected (NotDetected) Serum Alcohol mg/dL Coronavirus (PCR) Not Detected (Not Detectd) Influenza Type A (PCR) (Not Detectd) Influenza Type B (PCR) (Not Detectd) RSV (PCR) (Not Detectd) SARS-CoV-2 (PCR) (Not Detectd) 10/20/22 10/22/22 Range/Units 21:38 08:53 WBC (3.8-10.6) k/uL RBC (4.30-5.90) m/uL Hgb (13.0-17.5) gm/dL Hct (39.0-53.0) % MCV (80.0-100.0) fL MCH (25.0-35.0) pg MCHC (31.0-37.0) g/dL RDW (11.5-15.5) % Plt Count (150-450) k/uL MPV Neutrophils % % Lymphocytes % % Monocytes % % Eosinophils % % Basophils % % Neutrophils # (1.3-7.7) k/uL Lymphocytes # (1.0-4.8) k/uL Monocytes # (0-1.0) k/uL Eosinophils # (0-0.7) k/uL Basophils # (0-0.2) k/uL Sodium (137-145) mmol/L Potassium (3.5-5.1) mmol/L Chloride (98-107) mmol/L Carbon Dioxide (22-30) mmol/L Anion Gap mmol/L BUN (9-20) mg/dL Creatinine (0.66-1.25) mg/dL Est GFR (CKD-EPI)AfAm (>60 ml/min/1.73 sqM) Est GFR (CKD-EPI)NonAf (>60 ml/min/1.73 sqM) Glucose (74-99) mg/dL Calcium (8.4-10.2) mg/dL Salicylates mg/dL Urine Opiates Screen (NotDetected) Ur Oxycodone Screen (NotDetected) Urine Methadone Screen (NotDetected) Ur Propoxyphene Screen (NotDetected) Acetaminophen ug/mL Ur Barbiturates Screen (NotDetected) Valproic Acid ug/mL U Tricyclic Antidepress (NotDetected) Ur Phencyclidine Scrn (NotDetected) Clozapine 121 L (200-700) ng/mL Norclozapine 38 L (200-700) ng/mL Ur Amphetamines Screen (NotDetected) U Methamphetamines Scrn (NotDetected) U Benzodiazepines Scrn (NotDetected) Urine Cocaine Screen (NotDetected) U Marijuana (THC) Screen (NotDetected) Serum Alcohol mg/dL Coronavirus (PCR) (Not Detectd) Influenza Type A (PCR) Not Detected (Not Detectd) Influenza Type B (PCR) Not Detected (Not Detectd) RSV (PCR) Not Detected (Not Detectd) SARS-CoV-2 (PCR) Not Detected (Not Detectd) Disposition <Laverne Trinidad - Last Filed: 10/18/22 19:19> <Luis M Leone - Last Filed: 10/18/22 22:42> Is patient prescribed a controlled substance at d/c from ED?: Yes When asked, does pt state using other controlled substances?: No If prescribed controlled substance>3 days was MAPS reviewed?: Prescribed <3 Days Time of Disposition: 14:28 <Rigo Soto - Last Filed: 10/23/22 14:28> Clinical Impression: Autism spectrum disorder, requiring very substantial support, with accompanying intellectual impairment, Agitation Disposition: HOME SELF-CARE Condition: Stable Instructions (If sedation given, give patient instructions): ADHD in Adults (ED), Autism Spectrum Disorder (DC) Additional Instructions: Please do follow-up with primary care physician Tuesday. Prescriptions have been sent to pharmacy. Return for change in mental status, fever, worsening symptoms or other concerns. Prescriptions: LORazepam [Ativan] 2 mg PO TID PRN 3 Days #9 tab PRN Reason: Agitation diphenhydrAMINE [Benadryl] 50 mg PO QID PRN #5 capsule PRN Reason: Agitation cloZAPine [Clozapine] 200 mg PO HS #14 tab Divalproex ER [Depakote ER] 1,500 mg PO HS #42 tab chlorproMAZINE HCL [Thorazine] 50 mg PO QID PRN #5 tablet PRN Reason: Agitation Referrals: Sammy Gatica MD [Primary Care Provider] - 1-2 days
[2022-10-18] MEDS ORDERED: LORazepam 2 MG/ML INJ IM STA (17:28)
[2022-10-18] MEDS ORDERED: HALOPERIDOL LACTATE 5 MG/ML 1 ML VIAL IM PRN (17:29)
[2022-10-18] MEDS ORDERED: HALOPERIDOL LACTATE 5 MG/ML 1 ML VIAL IM ONE (18:17)
[2022-10-18] MEDS ORDERED: diphenhydrAMINE 50 MG/ML 1 ML VIAL IM STA (18:17)
[2022-10-18] MEDS ORDERED: ZIPRASIDONE 20 MG VIAL IM STA (18:57)
[2022-10-18] MEDS ORDERED: OLANZapine 10 MG VIAL IM STA (19:57)
[2022-10-18 21:38] LABS: Basophils % (A) 1 %; Eosinophils # (A) 0.1 k/uL (0-0.7); Eosinophils % (A) 1 %; HCT 40.8 % (39.0-53.0); HGB 14.9 gm/dL (13.0-17.5); Lymphocytes # (A) 1.6 k/uL (1.0-4.8); Lymphocytes % (A) 21 %; MCH 30.6 pg (25.0-35.0); MCHC 36.5 g/dL (31.0-37.0); MCV 83.7 fL (80.0-100.0); Mean Platelet Volume 9.2; Monocytes # (A) 0.8 k/uL (0-1.0); Monocytes % (A) 10 %; Neutrophils % (A) 66 %; Platelet Count 128 k/uL (150-450); RBC 4.87 m/uL (4.30-5.90); RDW 12.1 % (11.5-15.5); WBC 7.6 k/uL (3.8-10.6)
[2022-10-18 22:03] LABS: Acetaminophen <10.0 ug/mL; African American GFR (CKD) >90 (>60 ml/min/1.73 sqM); Alcohol <10 mg/dL; Anion Gap 10 mmol/L; Blood Urea Nitrogen 14 mg/dL (9-20); Calcium 9.4 mg/dL (8.4-10.2); Carbon Dioxide 26 mmol/L (22-30); Chloride 106 mmol/L (98-107); Glucose 89 mg/dL (74-99); Non-African American GFR(CKD) >90 (>60 ml/min/1.73 sqM); Salicylate <1.0 mg/dL; Sodium 142 mmol/L (137-145)
[2022-10-18 22:38] LABS: Potassium 4.4 mmol/L (3.5-5.1)
[2022-10-18] MEDS ORDERED: OLANZapine 10 MG VIAL IM PRN (23:00)
[2022-10-19 14:58] LABS: Amphetamine Screen,Urine Not Detected (NotDetected); Barbiturate Screen,Urine Not Detected (NotDetected); Benzodiazepines Screen,Urine Detected (NotDetected); Cocaine Screen,Urine Not Detected (NotDetected); Methadone Screen, Urine Not Detected (NotDetected); Opiate Screen,Urine Not Detected (NotDetected); Oxycodone Screen, Urine Not Detected (NotDetected); Phencyclidine Screen,Urine Not Detected (NotDetected); Tricyclic Antidepressant,Urine Detected (NotDetected); Urn Cannabinoid Scrn Not Detected (NotDetected)
[2022-10-20] MEDS ORDERED: DOCUSATE 100 MG CAP PO PRN (00:47)
[2022-10-20] MEDS ORDERED: cloZAPine 100 MG TAB PO SCH (00:47)
[2022-10-20] MEDS: NON FORMULARY DRUG (Acetylcysteine [Nac] 600 MG Tablet) PO SCH (06:21)
[2022-10-20 09:15] LABS: Clozapine (Clozaril) 101 ng/mL (200-700); Norclozapine 43 ng/mL (200-700)
--- NOTE | 2022-10-20 13:10 | P.CN ---
Psychiatric Consult - . Consult date: 10/20/22 Consult:: 10/20/22 13:09 IDENTIFYING DATA: This patient is a 41-year-old single, unemployed, developmentally disabled mixed-race male presented to the emergency department for increased agitated behavior at his half-way. HISTORY OF PRESENT ILLNESS: The patient presented to the hospital on 10/18/2022 brought in from his half-way for increased agitation and aggression. Patient is autistive, nonverbal, with an IQ of 20. Patient could not provide history due to his baseline functioning and therefore much history was through chart review and staff. Patient reportedly had his clozaril recently increased from 100 mg to 200 mg. He was also on depakote and ativan however at the [facility], the patient began to exhibit self abusive behavior, often hitting himself on the head and punching badillo. He was scheduled for his appointment at [facility] on 10/20/2022 however due to the acuity of his behaviors he was subsequently transferred to [facility]. PAST PSYCHIATRIC HISTORY: Patient has severe autism spectrum disorder. Patient is currently on a regimen of clozaril and depakote. Unable to determine previous psychiatric hospitalizations. Patient is currently open with [facility]. The patient does have a history of self-injurious behavior however we are limited in his history of previous suicide attempts. PAST MEDICAL HISTORY: Additional Past Medical History / Comment(s): Autism History of Any Multi-Drug Resistant Organisms: None Reported Past Surgical History: No Surgical Hx Reported Past Psychological History: Anxiety Smoking Status: Never smoker Past Alcohol Use History: None Reported Past Drug Use History: None Reported ALLERGIES: hay fever CHEMICAL DEPENDENCY HISTORY: No reported chemical dependency history FAMILY PSYCHIATRIC/SUBSTANCE USE HISTORY: Brother is also diagnosed with developmental delay. SOCIAL HISTORY: Patient is currently a resident at the [facility]. He is single, never , and has no children. MENTAL STATUS EXAM: General Appearance: Patient appears to be stated age is alert, directable, but unable to cooperate. Patient appears to have [fair] hygiene and grooming wearing hospital gown with intermittent eye contact. Behavior: Patient slaps his own head when expressing a desire to eat his lunch. However does not do so with much force. Speech: Patient is nonverbal. Mood/Affect: Patient reports their mood cannot be verbalized. Affect is childlike Suicidality/Homicidality: Unable to assess. Perceptions:Unable to assess. Though content/process: Unable to assess. Memory and concentration: Unable to assess. Judgment and insight: Very poor at baseline IMPRESSIONS: Autism spectrum disorder with agitated behaviors Thrombocytopenia PLAN: -At this time patient DOES meet criteria for inpatient treatment at a hospital that can facilitate his developmental delay and autism spectrum disorder. -Patient DOES NOT have decision making capacity at this time and is unable to reason through and communicate/appreciate the risks, benefits and alternatives to treatment. -Would recommend the following medication changes/additions: Increase clozaril to 25 mg in the morning and 200 mg at bedtime for behaviors Restart Depakote 1000 mg at bedtime for behaviors -PRNs for agitation: thorazine, ativan, benadryl -CBC ordered for Tuesday. Will monitor thrombocytopenia. Will be conservative with antipsychotic management. -Continue 1:1 sitter for safety -Cannot leave AMA at this time. Patient will need a petition and certification if attempting to leave AMA. -Will continue to follow along -When medically stable, patient is eligible for transfer to a facility for his needs when available. 10/20/22 13:09
[2022-10-20] MEDS: LORazepam 1 MG TAB PO PRN ×2 (16:50→22:58)
[2022-10-20] MEDS: chlorproMAZINE 25 MG TAB PO PRN (18:01)
[2022-10-20 23:28] VITALS: RESP 18
[2022-10-20] MEDS: LORATADINE 10 MG TAB PO SCH (23:35)
[2022-10-20] MEDS: CEFDINIR 300 MG CAP PO SCH ×2 (23:35→23:47)
[2022-10-20] MEDS: FOLIC ACID-VIT B COMPLEX-VIT C 1 CAP PO SCH (23:35)
[2022-10-20] MEDS: DIVALPROEX ER 500 MG TAB.ER.24H PO SCH (23:47)
[2022-10-20] MEDS: cloZAPine 100 MG TAB PO SCH (23:48)
[2022-10-21] MEDS: NON FORMULARY DRUG (Acetylcysteine [Nac] 600 MG Tablet) PO SCH ×3 (00:43→19:56)
[2022-10-21] MEDS: chlorproMAZINE 25 MG TAB PO PRN (01:05)
[2022-10-21] MEDS ORDERED: ZIPRASIDONE 20 MG VIAL IM STA (01:43)
[2022-10-21] MEDS: LORazepam 2 MG/ML INJ IM PRN (01:46)
[2022-10-21] MEDS: diphenhydrAMINE 50 MG/ML 1 ML VIAL IM PRN (01:46)
[2022-10-21] MEDS ORDERED: cloZAPine 25 MG TAB PO SCH (09:00)
--- NOTE | 2022-10-21 13:10 | P.PN ---
Progress Note - Text Progress Note Date: 10/21/22 Interval History: Patient was seen sleeping in his room and appeared comfortable. History is limited to the patient being nonverbal. Collateral information was obtained by his sitter. The patient did receive Thorazine as needed for agitation however has been noted to be nonviolent and has been mostly directable. He has been adherent with his medications. He is currently sleeping calmly. Awaiting placement. Mental Status Exam: General Appearance: Patient appears to be stated age. Behavior: Patient is calmly sleeping. Speech: Patient is nonverbal Mood/Affect: Mood cannot be assessed. Affect is rested. Suicidality/Homicidality: Cannot be assessed Perceptions: Cannot be assessed Though content/process: Cannot be assessed Memory and concentration: Cannot be assessed Judgment and insight: Very poor at baseline. Vital Signs Temp 98.1 F 10/19/22 19:44 Pulse 100 10/20/22 23:27 Resp 18 10/20/22 23:27 BP 123/83 10/20/22 23:27 Pulse Ox 98 10/19/22 19:44 FiO2 Assessment Autism spectrum disorder with agitated behaviors Thrombocytopenia Plan: -At this time patient DOES meet criteria for inpatient treatment at a hospital that can facilitate his developmental delay and autism spectrum disorder. -Patient DOES NOT have decision making capacity at this time and is unable to reason through and communicate/appreciate the risks, benefits and alternatives to treatment. -Would recommend the following medication changes/additions: Continue clozaril 25 mg in the morning and 200 mg at bedtime for behaviors Continue Depakote 1000 mg at bedtime for behaviors -PRNs for agitation: thorazine, ativan, benadryl -CBC ordered for Tuesday. Will monitor thrombocytopenia. Will be conservative with antipsychotic management. -Continue 1:1 sitter for safety -Cannot leave AMA at this time. Patient will need a petition and certification if attempting to leave AMA. -Will continue to follow along -When medically stable, patient is eligible for transfer to a facility for his needs when available.
[2022-10-21] MEDS: LORATADINE 10 MG TAB PO SCH (14:10)
[2022-10-21] MEDS: CEFDINIR 300 MG CAP PO SCH ×3 (14:10→20:20)
[2022-10-21] MEDS: FOLIC ACID-VIT B COMPLEX-VIT C 1 CAP PO SCH (14:10)
[2022-10-21] MEDS: cloZAPine 25 MG TAB PO SCH (14:11)
[2022-10-21] MEDS: LORazepam 1 MG TAB PO PRN (20:00)
[2022-10-21] MEDS: DIVALPROEX ER 500 MG TAB.ER.24H PO SCH (20:20)
[2022-10-21] MEDS: cloZAPine 100 MG TAB PO SCH (20:21)
[2022-10-22 08:10] LABS: Clozapine (Clozaril) 121 ng/mL (200-700); Norclozapine 38 ng/mL (200-700)
[2022-10-22] MEDS: NON FORMULARY DRUG (Acetylcysteine [Nac] 600 MG Tablet) PO SCH ×2 (08:15→19:33)
[2022-10-22] MEDS: cloZAPine 25 MG TAB PO SCH (09:10)
[2022-10-22] MEDS: FOLIC ACID-VIT B COMPLEX-VIT C 1 CAP PO SCH (09:10)
[2022-10-22] MEDS: LORATADINE 10 MG TAB PO SCH (09:10)
--- NOTE | 2022-10-22 12:04 | P.PN ---
Progress Note - Text Progress Note Date: 10/22/22 Interval History: Patient was seen sleeping in his room and appeared comfortable. History is limited to the patient being nonverbal. Patient was noted to be calm and cooperative and directable. No agitated behaviors noted in the past 48 hours. CBC to be drawn to monitor thrombocytopenia. Mental Status Exam: General Appearance: Patient appears to be stated age. Behavior: Patient is calmly sleeping. Speech: Patient is nonverbal Mood/Affect: Mood cannot be assessed. Affect is rested. Suicidality/Homicidality: Cannot be assessed Perceptions: Cannot be assessed Though content/process: Cannot be assessed Memory and concentration: Cannot be assessed Judgment and insight: Very poor at baseline. Vital Signs Temp 97.6 F 10/22/22 09:04 Pulse 100 10/22/22 09:04 Resp 18 10/22/22 09:04 BP 100/65 10/22/22 09:04 Pulse Ox 95 10/22/22 09:04 FiO2 Laboratory Results - Last 24 Hours 10/20/22 10/22/22 21:38 08:53 Clozapine 121 L Norclozapine 38 L Influenza Type A (PCR) Not Detected Influenza Type B (PCR) Not Detected RSV (PCR) Not Detected SARS-CoV-2 (PCR) Not Detected Assessment Autism spectrum disorder with agitated behaviors Thrombocytopenia Plan: -At this time patient DOES meet criteria for inpatient treatment at a hospital that can facilitate his developmental delay and autism spectrum disorder. -Patient DOES NOT have decision making capacity at this time and is unable to reason through and communicate/appreciate the risks, benefits and alternatives to treatment. -Would recommend the following medication changes/additions: No medication recommendations today. Continue clozaril 25 mg in the morning and 200 mg at bedtime for behaviors Continue Depakote 1000 mg at bedtime for behaviors -PRNs for agitation: thorazine, ativan, benadryl -CBC ordered for Tuesday. Will monitor thrombocytopenia. Will be conservative with antipsychotic management. -Continue 1:1 sitter for safety -Cannot leave AMA at this time. Patient will need a petition and certification if attempting to leave AMA. -Psychiatry will follow loosely. If any acute events or concerns please contact the on-call psychiatrist over the weekend. -When medically stable, patient is eligible for transfer to a facility for his needs when available.
[2022-10-22] MEDS: LORazepam 1 MG TAB PO PRN ×2 (16:36→22:30)
[2022-10-22] MEDS: CEFDINIR 300 MG CAP PO SCH (21:41)
[2022-10-22] MEDS: DIVALPROEX ER 500 MG TAB.ER.24H PO SCH (21:41)
[2022-10-22] MEDS: cloZAPine 100 MG TAB PO SCH (21:41)
[2022-10-22] MEDS: chlorproMAZINE 25 MG TAB PO PRN (22:39)
[2022-10-23] MEDS: LORazepam 2 MG/ML INJ IM PRN (00:35)
[2022-10-23] MEDS: diphenhydrAMINE 50 MG/ML 1 ML VIAL IM PRN (00:35)
[2022-10-23] MEDS: chlorproMAZINE 25 MG TAB PO PRN ×2 (00:47→13:26)
[2022-10-23] MEDS: NON FORMULARY DRUG (Acetylcysteine [Nac] 600 MG Tablet) PO SCH (08:21)
[2022-10-23] MEDS: FOLIC ACID-VIT B COMPLEX-VIT C 1 CAP PO SCH (09:22)
[2022-10-23] MEDS: LORATADINE 10 MG TAB PO SCH (09:22)
[2022-10-23] MEDS: CEFDINIR 300 MG CAP PO SCH (09:22)
[2022-10-23] MEDS: cloZAPine 100 MG TAB PO SCH (09:22)
[2022-10-23] MEDS: cloZAPine 25 MG TAB PO SCH (10:32)
[2022-10-23 15:47] VITALS: BP 135/92; PULSE 106; TEMP 98.6
--- NOTE | 2022-10-25 11:10 | CONS ---
DATE OF SERVICE 10/23/2022 CONSULTATION PURPOSE FOR CONSULTATION: Evaluate for agitation and aggressive behavior. INTERVAL HISTORY: The patient was initially seen in the ED on 10/18/2022 where he presented for increased aggression and self-abusive behavior at his [facility]. He was seen in psychiatric consultation by Dr. Miller on 10/20/2022. He noted a diagnosis of autism spectrum disorder. The patient has intellectual disability, severe. Current psychotropic medications on admission included Depakote 1500 mg a day and clozapine 200 mg a day. Apparently, the dose had recently been increased from 100 mg a day. The patient was having self-abusive behavior, hitting himself on his head and also punching badillo. Dr. Miller recommended an increase in clozapine to 25 mg in the morning and 200 mg at bedtime and restarting Depakote at 1000 mg a day. Laboratory data on 10/18 indicated a valproic acid level of 76. On 10/20, indicated a clozapine level of 121. It is noteworthy that for the most part the patient is nonverbal. Nursing indicated that the patient has mostly been in a quiet mood over the last 24 hours or more. He apparently had 1 episode where he got agitated and was hitting the door. He received p.r.n. medication. Nursing believes that he may have been upset simply for the time period that he has been in the emergency room, sequestered to his room. He has been sleeping on and off. MENTAL STATUS EXAM: The patient was lying in bed. He had been sleeping when I went in the room. I tried to wake him. He did open his eyes a little bit a few different times, though did not respond in any meaningful way. A couple different times, he pulled the cover up to his face, then also pulled the cover down again. He was lying quietly. He did not appear to be distressed. ASSESSMENT: I will continue the diagnosis of autistic spectrum disorder and intellectual disability, severe. It would be reasonable to make an effort to return the patient to his AF. There are 2 factors that may be significant at this point, one is that he apparently has just moved into a new facility and such a move by itself can be very disruptive for someone with autistic spectrum disorder. Secondly, apparently his brother had also been in the home, then moved to another facility. He may have felt a loss of support in that regard. It would be reasonable to continue with clozapine, though the dose may need to continue to go up. He is currently at a subtherapeutic level in regard to the blood level, though effectiveness of clozapine can be quite variable in this picture. Overall, my treatment recommendation would be to continue to titrate up on clozapine and monitor blood levels as appropriate. Presumably, he will continue on Depakote, though the patient has not had a diagnosis of bipolar disorder, so it is unclear what the indication for Depakote is. I reviewed status with nursing and the plan at this point is to make arrangements for the patient to return to his foster home. He did have a [facility] appointment scheduled for 10/20. It would be helpful to get him into a followup appointment as soon as possible. JULIA / FLOR: [phone] / VINAY
== END 2022-10-23 16:03 | disposition home or self-care (01) ==
LOC: EC 16:20
DX: D69.6 Thrombocytopenia, unspecified (principal); F84.0 Autistic disorder; F79 Unspecified intellectual disabilities; F41.9 Anxiety disorder, unspecified; Z20.822 Contact with and (suspected) exposure to COVID-19
CPT/HCPCS: 36415; 80159; 80164; 80048; 85025; 80306; 80143; 87635; 80179; 99285; 96372 ×9; G0480; J2060 ×3; J1200 ×3; J1630; S0136 ×5; J3486; 80320

== ENCOUNTER 2022-10-26 16:13 | Emergency (ER) | payer MEDICARE, OTHER ==
--- NOTE | 2022-10-26 17:06 | ED ---
General Adult HPI - General Source: patient, RN notes reviewed, old records reviewed Mode of arrival: ambulatory Limitations: no limitations <Alan Hernandez - Last Filed: 11/02/22 12:36> <Nash Sutton - Last Filed: 11/04/22 21:08> - General Chief complaint: Psychiatric Symptoms Stated complaint: mental health Time Seen by Provider: 10/26/22 16:25 - History of Present Illness Initial comments: This is a 41-year-old male who is brought in to the emergency department because he is in a custodial is nonverbal and he has been acting out and hitting himself with his hands and fists and sometimes in the past that might mean that he has an infection or some problem but is unable to indicate any thing to us. Patient's caregiver is in the room and states they have not noticed any fevers numbness any vomiting or diarrhea there's been no other signs that would indicate is having a problem but again he is not verbal so he does not have the ability to tell us if something is bothering him. They do note a definitive change in his personality but they also state there is a lot of changes going on in the custodial that my also had some upset. (Alan Hernandez) - Related Data Home Medications Medication Instructions Recorded Confirmed Acetylcysteine [Nac] 1,200 mg PO BID@799,199907/08/22 10/26/22 Cetirizine HCl [Zyrtec] 10 mg PO DAILY@79907/08/22 10/26/22 Fluocinonide 0.05% [Lidex 0.05% 1 applic TOPICAL BID PRN 07/08/22 10/26/22 cream] Fluticasone Nasal [place] [Flonase 2 spr EA NOSTRIL DAILY@79907/08/22 10/26/22 Nasal [place]] Mupirocin 2% Oint [Bactroban 2% 1 applic TOPICAL BID@799,199907/08/22 10/26/22 Oint] Vitamin B Complex 1 cap PO DAILY@79907/08/22 10/26/22 cefaCLOR [Ceclor] 500 mg PO BID@799,199907/08/22 10/26/22 Clindamycin Phosphate [Cleocin T 1 applic TOPICAL BID PRN 10/18/22 10/26/22 1%] Docusate [Colace] 100 mg PO BID PRN 10/18/22 10/26/22 diphenhydrAMINE [Benadryl] 50 mg PO QID PRN 10/26/22 10/26/22 Previous Rx's Medication Instructions Recorded Divalproex ER [Depakote ER] 1,500 mg PO HS@1999 30 Days tab 11/02/22 LORazepam [Ativan] 2 mg PO TID PRN 7 Days #21 tab 11/02/22 cloZAPine [Clozaril] 25 mg PO HS@1999 30 Days tab 11/02/22 cloZAPine [Clozaril] 200 mg PO HS@1999 30 Days tab 11/02/22 Allergies Allergy/AdvReac Type Severity Reaction Status Date / Time hay fever Allergy Unknown Uncoded 10/26/22 17:50 Review of Systems ROS Other: All systems not noted in ROS Statement are negative. <Alan Hernandez - Last Filed: 11/02/22 12:36> ROS Other: All systems not noted in ROS Statement are negative. <Nash Sutton - Last Filed: 11/04/22 21:08> ROS Statement: Those systems with pertinent positive or pertinent negative responses have been documented in the HPI. Past Medical History Additional Past Medical History / Comment(s): Autism History of Any Multi-Drug Resistant Organisms: None Reported Past Surgical History: No Surgical Hx Reported Past Psychological History: Anxiety Smoking Status: Never smoker Past Alcohol Use History: None Reported Past Drug Use History: None Reported <Alan Hernandez - Last Filed: 11/02/22 12:36> General Exam Limitations: no limitations <Alan Hernandez - Last Filed: 11/02/22 12:36> - General Exam Comments Initial Comments: GENERAL: Patient is well-developed and well-nourished. Patient is nontoxic and well- hydrated and is in no acute distress. ENT: Neck is soft and supple. No significant lymphadenopathy is noted. Oropharynx is clear. Moist mucous membranes. Neck has full range of motion without eliciting any pain. EYES: The sclera were anicteric and conjunctiva were pink and moist. Extraocular movements were intact and pupils were equal round and reactive to light. Eyelids were unremarkable. PULMONARY: Unlabored respirations. Good breath sounds bilaterally. No audible rales rhonchi or wheezing was noted. CARDIOVASCULAR: There is a regular rate and rhythm without any murmurs gallops or rubs. ABDOMEN: Soft and nontender with normal bowel sounds. SKIN: Skin is clear with no lesions or rashes and otherwise unremarkable. NEUROLOGIC: Patient is alert and oriented not oriented at all. Cranial nerves II through XII are grossly intact. MUSCULOSKELETAL: Normal extremities with adequate strength and full range of motion. LYMPHATICS: No significant lymphadenopathy is noted PSYCHIATRIC: Unable to assess since patient will not speak (Alan Hernandez) Course Vital Signs 10/26/22 10/27/22 10/28/22 16:17 12:00 10:00 Temperature 98.7 F 98.1 F Pulse Rate 90 66 Respiratory 18 16 18 Rate Blood Pressure 133/72 132/65 O2 Sat by Pulse 95 98 Oximetry 10/28/22 10/28/22 10/28/22 11:00 12:00 13:00 Temperature Pulse Rate Respiratory 18 18 18 Rate Blood Pressure O2 Sat by Pulse Oximetry 10/28/22 10/28/22 10/29/22 15:00 18:03 03:00 Temperature 98 F Pulse Rate 61 Respiratory 16 18 16 Rate Blood Pressure 126/72 O2 Sat by Pulse 97 Oximetry 10/29/22 10/30/22 10/31/22 21:00 12:00 21:00 Temperature Pulse Rate 105 H 100 112 H Respiratory 18 20 18 Rate Blood Pressure 126/89 130/80 140/69 O2 Sat by Pulse 99 98 98 Oximetry 11/02/22 11/02/22 09:00 13:17 Temperature 98.1 F Pulse Rate 104 H Respiratory 18 18 Rate Blood Pressure 108/78 O2 Sat by Pulse 99 Oximetry Procedures - Restraint - Face to Face Restraint Occurrence 1 Patient's Immediate Situation: Endangers self safety, Endangers others' safety, Violent behavior Patient's Reaction to the Intervention: Appropriate Patient's Medical & Behavioral Condition: Awake, Agitated Need to Continue or Terminate Restraint or Seclusion: Continue Face to Face Eval of Restraint Date: 10/27/22 Face to Face Eval of Restraint Time: 04:05 <Nash Sutton - Last Filed: 11/04/22 21:08> Medical Decision Making - Lab Data Result diagrams: 10/26/22 17:14 10/26/22 17:14 <Alan Hernandez - Last Filed: 11/02/22 12:36> - Lab Data Result diagrams: 10/26/22 17:14 10/26/22 17:14 <Nash Sutton - Last Filed: 11/04/22 21:08> - Medical Decision Making Was pt. sent in by a medical professional or institution? @ -alf Did you speak to anyone other than the patient for history? @ -Counselor Did you review nursing and triage notes? @ -Reviewed nurse's notes and agree Were old charts reviewed? @ -I reviewed previous admission notes Differential Diagnosis? @ -COVID, RSV, influenza, urinary tract infection, pneumonia, bronchitis, EKG interpreted by me (3pts min.)? @ -None X-rays interpreted by me (1pt min.)? @ -I interpreted the chest x-ray showed no acute abnormality. CT interpreted by me (1pt min.)? @ -None U/S interpreted by me (1pt. min.)? @ -None What testing was considered but not performed? (CT, X-rays, U/S, labs)? Why? @ -None What meds were considered but not given? Why? @ -Known Did you discuss the management of the patient with other professionals? @ -psychiatric nurse Did you reconcile home meds? @ -None Was smoking cessation discussed for >3mins.? @ -None Was critical care preformed (if so, how long)? @ -No Were there social determinants of health that impacted care today? How? (Homelessness, low income, unemployed, alcoholism, drug addiction, transportation, low edu. Level, literacy, decrease access to med. care, skilled nursing, rehab)? @ -No Was there de-escalation of care discussed even if they declined? (Discuss DNR or withdrawal of care, Hospice)? @ -No What co-morbidities impacted this encounter? (DM, HTN, Smoking, COPD, CAD, Cancer, CVA, Hep., AIDS, mental health diagnosis, sleep apnea, morbid obesity)? @ -No Was patient admitted / discharged? @ -Psychosis. Psychiatric nurse stated that they will evaluate the patient with the psychiatrist in morning and determine what the course of action will be. Undiagnosed new problem with uncertain prognosis? @ -No Drug Therapy requiring intensive monitoring for toxicity (Heparin, Nitro, Insulin, Cardizem)? @ -No Were any procedures done? @ -No Diagnosis/symptom? @ -Psychosis Acute, or Chronic, or Acute on Chronic? @ -Acute on chronic Uncomplicated (without systemic symptoms) or Complicated (systemic symptoms)? @ -Uncomplicated Side effects of treatment? @ -None Exacerbation, Progression, or Severe Exacerbation] @ -No Poses a threat to life or bodily function? @ -No The psychiatrist came down to the patient's room and saw the patient and determined the patient could go back to the custodial custodial came and pick ed him up (Alan Hernandez) - Lab Data Lab Results 10/26/22 10/26/22 10/26/22 Range/Units 16:57 17:14 17:14 WBC 5.2 (3.8-10.6) k/uL RBC 4.48 (4.30-5.90) m/uL Hgb 13.6 (13.0-17.5) gm/dL Hct 38.0 L (39.0-53.0) % MCV 84.9 (80.0-100.0) fL MCH 30.3 (25.0-35.0) pg MCHC 35.6 (31.0-37.0) g/dL RDW 12.1 (11.5-15.5) % Plt Count 188 (150-450) k/uL MPV 7.4 Neutrophils % 67 % Lymphocytes % 17 % Monocytes % 11 % Eosinophils % 3 % Basophils % 1 % Neutrophils # 3.5 (1.3-7.7) k/uL Lymphocytes # 0.9 L (1.0-4.8) k/uL Monocytes # 0.6 (0-1.0) k/uL Eosinophils # 0.2 (0-0.7) k/uL Basophils # 0.0 (0-0.2) k/uL Sodium 136 L (137-145) mmol/L Potassium 4.3 (3.5-5.1) mmol/L Chloride 106 (98-107) mmol/L Carbon Dioxide 27 (22-30) mmol/L Anion Gap 3 mmol/L BUN 15 (9-20) mg/dL Creatinine 0.90 (0.66-1.25) mg/dL Est GFR (CKD-EPI)AfAm >90 (>60 ml/min/1.73 sqM) Est GFR (CKD-EPI)NonAf >90 (>60 ml/min/1.73 sqM) Glucose 86 (74-99) mg/dL Calcium 9.0 (8.4-10.2) mg/dL Total Bilirubin 0.7 (0.2-1.3) mg/dL AST 40 (17-59) U/L ALT 62 H (4-49) U/L Alkaline Phosphatase 89 (38-126) U/L Total Protein 6.4 (6.3-8.2) g/dL Albumin 3.8 (3.5-5.0) g/dL Clozapine (200-700) ng/mL Norclozapine (200-700) ng/mL Serum Alcohol <10 mg/dL Influenza Type A (PCR) Not Detected (Not Detectd) Influenza Type B (PCR) Not Detected (Not Detectd) RSV (PCR) Not Detected (Not Detectd) SARS-CoV-2 (PCR) Not Detected (Not Detectd) 10/26/22 Range/Units 17:14 WBC (3.8-10.6) k/uL RBC (4.30-5.90) m/uL Hgb (13.0-17.5) gm/dL Hct (39.0-53.0) % MCV (80.0-100.0) fL MCH (25.0-35.0) pg MCHC (31.0-37.0) g/dL RDW (11.5-15.5) % Plt Count (150-450) k/uL MPV Neutrophils % % Lymphocytes % % Monocytes % % Eosinophils % % Basophils % % Neutrophils # (1.3-7.7) k/uL Lymphocytes # (1.0-4.8) k/uL Monocytes # (0-1.0) k/uL Eosinophils # (0-0.7) k/uL Basophils # (0-0.2) k/uL Sodium (137-145) mmol/L Potassium (3.5-5.1) mmol/L Chloride (98-107) mmol/L Carbon Dioxide (22-30) mmol/L Anion Gap mmol/L BUN (9-20) mg/dL Creatinine (0.66-1.25) mg/dL Est GFR (CKD-EPI)AfAm (>60 ml/min/1.73 sqM) Est GFR (CKD-EPI)NonAf (>60 ml/min/1.73 sqM) Glucose (74-99) mg/dL Calcium (8.4-10.2) mg/dL Total Bilirubin (0.2-1.3) mg/dL AST (17-59) U/L ALT (4-49) U/L Alkaline Phosphatase (38-126) U/L Total Protein (6.3-8.2) g/dL Albumin (3.5-5.0) g/dL Clozapine 197 L (200-700) ng/mL Norclozapine 66 L (200-700) ng/mL Serum Alcohol mg/dL Influenza Type A (PCR) (Not Detectd) Influenza Type B (PCR) (Not Detectd) RSV (PCR) (Not Detectd) SARS-CoV-2 (PCR) (Not Detectd) Disposition Time of Disposition: 12:36 <Alan Hernandez - Last Filed: 11/02/22 12:36> Is patient prescribed a controlled substance at d/c from ED?: No <Nash Sutton - Last Filed: 11/04/22 21:08> Clinical Impression: Behavioral disorder Disposition: HOME SELF-CARE Condition: Stable Prescriptions: LORazepam [Ativan] 2 mg PO TID PRN 7 Days #21 tab PRN Reason: Agitation Or Acute Anxiety cloZAPine [Clozaril] 200 mg PO HS@1999 30 Days tab cloZAPine [Clozaril] 25 mg PO HS@1999 30 Days tab Divalproex ER [Depakote ER] 1,500 mg PO HS@1999 30 Days tab Referrals: Sammy Gatica MD [Primary Care Provider] - 1-2 days
[2022-10-26 17:32] LABS: ALT 62 U/L (4-49); AST 40 U/L (17-59); African American GFR (CKD) >90 (>60 ml/min/1.73 sqM); Albumin 3.8 g/dL (3.5-5.0); Alcohol <10 mg/dL; Alkaline Phosphatase 89 U/L (38-126); Anion Gap 3 mmol/L; Blood Urea Nitrogen 15 mg/dL (9-20); Carbon Dioxide 27 mmol/L (22-30); Chloride 106 mmol/L (98-107); Glucose 86 mg/dL (74-99); Non-African American GFR(CKD) >90 (>60 ml/min/1.73 sqM); Potassium 4.3 mmol/L (3.5-5.1); Sodium 136 mmol/L (137-145); Total Bilirubin 0.7 mg/dL (0.2-1.3); Total Protein 6.4 g/dL (6.3-8.2)
--- NOTE | 2022-10-26 17:44 | XR ---
EXAMINATION TYPE: XR chest 1V portable DATE OF EXAM: 10/26/2022 5:33 PM COMPARISON: None TECHNIQUE: XR chest 1V portable Portable AP radiograph of the chest. CLINICAL INDICATION:Male, 41 years old with history of Short of breath; FINDINGS: Lungs/Pleura: Bibasilar atelectasis. Low lung volumes. No evidence for pneumothorax, pleural effusion or focal consolidation. Pulmonary vascularity: Unremarkable. Heart/mediastinum: Cardiomediastinal silhouette is unremarkable. Musculoskeletal: No acute osseous pathology. IMPRESSION: Suspected bibasilar atelectasis, no acute cardiopulmonary disease/process.
[2022-10-26 17:49] LABS: Basophils % (A) 1 %; Eosinophils # (A) 0.2 k/uL (0-0.7); Eosinophils % (A) 3 %; HGB 13.6 gm/dL (13.0-17.5); Lymphocytes # (A) 0.9 k/uL (1.0-4.8); Lymphocytes % (A) 17 %; MCH 30.3 pg (25.0-35.0); MCHC 35.6 g/dL (31.0-37.0); MCV 84.9 fL (80.0-100.0); Mean Platelet Volume 7.4; Monocytes # (A) 0.6 k/uL (0-1.0); Monocytes % (A) 11 %; Neutrophils # (A) 3.5 k/uL (1.3-7.7); Neutrophils % (A) 67 %; Platelet Count 188 k/uL (150-450); RBC 4.48 m/uL (4.30-5.90); RDW 12.1 % (11.5-15.5); WBC 5.2 k/uL (3.8-10.6)
[2022-10-26] MEDS ORDERED: cloZAPine 100 MG TAB PO SCH (20:00)
[2022-10-26] MEDS ORDERED: chlorproMAZINE 25 MG/ML 2 ML AMP IM PRN (21:28)
[2022-10-26] MEDS ORDERED: LORazepam 2 MG/ML INJ IM PRN (21:28)
[2022-10-26] MEDS: DIVALPROEX ER 500 MG TAB.ER.24H PO SCH (22:21)
[2022-10-27] MEDS ORDERED: ZIPRASIDONE 20 MG VIAL IM STA (00:59)
[2022-10-27] MEDS: diphenhydrAMINE 50 MG/ML 1 ML VIAL IM PRN (01:09)
[2022-10-27] MEDS: LORazepam 1 MG TAB PO PRN (03:36)
[2022-10-27] MEDS: chlorproMAZINE 25 MG TAB PO PRN (03:50)
[2022-10-27] MEDS ORDERED: OLANZapine 10 MG VIAL IM STA (03:58)
--- NOTE | 2022-10-27 14:17 | P.CN ---
Psychiatric Consult - . Consult date: 10/27/22 Consult:: 10/27/22 14:16 IDENTIFYING DATA: This patient is a 41-year-old single, unemployed, developmentally disabled mixed-race male presented to the emergency department for increased agitated behavior at his fdc. HISTORY OF PRESENT ILLNESS: The patient presented to the hospital on 10/26/2022 brought in from his fdc for increased agitation and aggression. Patient is autistic, nonverbal, with an IQ of 20. Patient could not provide history due to his baseline functioning and therefore much history was through chart review and staff. The patient was reported to be acting out at his fdc, often hitting himself with his hands and fists. As per EPS report, the patient's group director reported that the patient has been "agitated since he was sent back from the hospital on ." Patient was apparently throwing things around in his room, drops a table in the kitchen spilling and drink all over, broke lighting in the bathroom, broke the door to his room, and threw objects out of his door at staff. " Patient had an episode of agitation approximately 3 AM the record administration of IM Geodon and IM Zyprexa. As per discussion with patient's nurse, he has been calm and sleeping most of the day. Patient is, in by his one-to-one supervision. PAST PSYCHIATRIC HISTORY: Patient has severe autism spectrum disorder. Patient is currently on a regimen of clozaril and depakote. Unable to determine previous psychiatric hospitalizations. Patient is currently open with [facility]. The patient does have a history of self-injurious behavior however we are limited in his history of previous suicide attempts. PAST MEDICAL HISTORY: Past Medical History Additional Past Medical History / Comment(s): Autism History of Any Multi-Drug Resistant Organisms: None Reported Past Surgical History: No Surgical Hx Reported Past Psychological History: Anxiety Smoking Status: Never smoker Past Alcohol Use History: None Reported Past Drug Use History: None Reported ALLERGIES: hay fever CHEMICAL DEPENDENCY HISTORY: No reported chemical dependency history FAMILY PSYCHIATRIC/SUBSTANCE USE HISTORY: Brother is also diagnosed with developmental delay. SOCIAL HISTORY: Patient is currently a resident at the [facility]. He is single, never , and has no children. MENTAL STATUS EXAM: General Appearance: Patient appears to be stated age is alert, directable, but unable to cooperate. Patient appears to have [fair] hygiene and grooming wearing his home clothes and is sleeping peacefully. Behavior: Patient is currently sleeping peacefully Speech: Patient is nonverbal. Mood/Affect: Patient reports their mood cannot be verbalized. Affect is somnolent. Suicidality/Homicidality: Unable to assess. Perceptions:Unable to assess. Though content/process: Unable to assess. Memory and concentration: Unable to assess. Judgment and insight: Very poor at baseline IMPRESSIONS: Autism spectrum disorder with agitated behaviors PLAN: -At this time patient DOES meet criteria for inpatient treatment at a hospital that can facilitate his developmental delay and autism spectrum disorder. -Patient DOES NOT have decision making capacity at this time and is unable to reason through and communicate/appreciate the risks, benefits and alternatives to treatment. -Would recommend the following medication changes/additions: Increase clozaril to 225 mg at bedtime for behaviors Continue Depakote 1500 mg at bedtime for behaviors -Thorazine and ativan PRN for agitation -We will discuss with [facility] in regards to the patient's current housing situation. During his previous presentations emergency department, the patient was noted to be calm and cooperative for 72 hours. Concern for fit with his current fdc is evident. PRNs for agitation: thorazine, ativan, benadryl -Continue 1:1 sitter for safety -Cannot leave AMA at this time. Patient will need a petition and certification if attempting to leave AMA. -Will continue to follow along -When medically stable, patient is eligible for transfer to a facility for his needs when available. 10/27/22 14:16
[2022-10-27] MEDS: cloZAPine 25 MG TAB PO SCH (20:19)
[2022-10-27] MEDS: DIVALPROEX ER 500 MG TAB.ER.24H PO SCH (20:19)
[2022-10-27] MEDS: cloZAPine 100 MG TAB PO SCH (20:19)
[2022-10-28] MEDS: chlorproMAZINE 25 MG TAB PO PRN (01:34)
[2022-10-28] MEDS: LORazepam 1 MG TAB PO PRN ×2 (01:34→22:35)
[2022-10-28] MEDS: diphenhydrAMINE 25 MG CAP PO PRN (01:34)
[2022-10-28 08:06] LABS: Clozapine (Clozaril) 197 ng/mL (200-700); Norclozapine 66 ng/mL (200-700)
--- NOTE | 2022-10-28 14:45 | P.PN ---
Progress Note - Text Progress Note Date: 10/28/22 Interval History: Patient was seen sleeping in bed without any agitated behavior. The patient was noted to not sleep well last night. However, the patient has been directable. He did not require any use of restraints. No acute behaviors as per discussion with the patient's nurse and sitter. He has been in adherent with his medications. Mental Status Exam: General Appearance: Patient appears to be stated age is alert, directable, but unable to cooperate. Patient appears to have fair hygiene and is sleeping peacefully. Behavior: Patient is currently sleeping peacefully Speech: Patient is nonverbal. Mood/Affect: Patient mood cannot be verbalized. Suicidality/Homicidality: Unable to assess. Perceptions:Unable to assess. Though content/process: Unable to assess. Memory and concentration: Unable to assess. Judgment and insight: Very poor at baseline Vital Signs Temp 98.1 F 10/27/22 12:00 Pulse 66 10/27/22 12:00 Resp 18 10/28/22 13:00 BP 132/65 10/27/22 12:00 Pulse Ox 98 10/27/22 12:00 FiO2 Laboratory Results - Last 24 Hours 10/26/22 17:14 Clozapine 197 L Norclozapine 66 L Assessment Autism spectrum disorder with agitated behaviors Plan: -At this time patient DOES meet criteria for inpatient treatment at a hospital that can facilitate his developmental delay and autism spectrum disorder. -Patient DOES NOT have decision making capacity at this time and is unable to reason through and communicate/appreciate the risks, benefits and alternatives to treatment. -Would recommend the following medication changes/additions: Continue Clozaril 225 mg at bedtime for behaviors Continue Depakote 1500 mg at bedtime for behaviors -Thorazine and ativan PRN for agitation -We will discuss with [facility] in regards to the patient's current housing situation. During his previous presentations emergency department, the patient was noted to be calm and cooperative for 72 hours. Concern for fit with his current shelter is evident. The patient has had numerous changes in his shelter prior to this admission, including recent change in room, staffing, as well as his brother moving out. PRNs for agitation: thorazine, ativan, benadryl -Continue 1:1 sitter for safety -Cannot leave AMA at this time. Patient will need a petition and certification if attempting to leave AMA. -Will continue to follow along. We will continue to reassess the patient if he requires inpatient psychiatric admission. During his last admission, the patient was stable for more than 72 hours without any incident. Should the patient display no acute or agitated behaviors we may clear him psychiatrically for discharge from the emergency department. -When medically stable, patient is eligible for transfer to a facility for his needs when available.
[2022-10-28] MEDS: cloZAPine 25 MG TAB PO SCH (19:48)
[2022-10-28] MEDS: cloZAPine 100 MG TAB PO SCH (19:48)
[2022-10-28] MEDS: DIVALPROEX ER 500 MG TAB.ER.24H PO SCH (19:48)
--- NOTE | 2022-10-29 14:27 | P.PN ---
Progress Note - Text Progress Note Date: 10/29/22 Interval History: Patient was seen sleeping in bed without any agitated behavior. As per discussion with the patient's nurse and sitter, he has been calmly sleeping and resting in bed. He has been redirectable aside from one episode of agitation where patient did require IM Ativan at approximately 2235. Aside from this has been no incidences. The patient has also been able to be accompanied to walk around the unit without any incident. Mental Status Exam: General Appearance: Patient appears to be stated age is alert, directable, but unable to cooperate. Patient appears to have fair hygiene and is sleeping peacefully. Behavior: Patient is currently sleeping peacefully Speech: Patient is nonverbal. Mood/Affect: Patient mood cannot be verbalized. Suicidality/Homicidality: Unable to assess. Perceptions:Unable to assess. Though content/process: Unable to assess. Memory and concentration: Unable to assess. Judgment and insight: Very poor at baseline Vital Signs Temp 98 F 10/28/22 18:03 Pulse 61 10/28/22 18:03 Resp 16 10/29/22 03:00 BP 126/72 10/28/22 18:03 Pulse Ox 97 10/28/22 18:03 FiO2 Assessment Autism spectrum disorder with agitated behaviors Plan: -At this time, there is concern for the patient's fit with his current penitentiary. The patient has been directable with minimal use of chemical restraints during this admission. This is despite him being present emergency department which is a highly stimulating environment for someone with autism spectrum disorder. Concern at this time whether the penitentiary is able to meet patient's needs. The patient has had numerous changes in his penitentiary prior to this admission, including recent change in room, staffing, as well as his brother moving out. -Patient DOES NOT have decision making capacity at this time and is unable to reason through and communicate/appreciate the risks, benefits and alternatives to treatment. -Would recommend the following medication changes/additions: Continue Clozaril 225 mg at bedtime for behaviors Continue Depakote 1500 mg at bedtime for behaviors -Thorazine and ativan PRN for agitation -Considering the holiday, we will need to coordinate with [facility] regarding appropriate placement for this patient. PRNs for agitation: thorazine, ativan, benadryl -Continue 1:1 sitter for safety -Will continue to follow along. We will continue to reassess the patient if he requires inpatient psychiatric admission. -Patient is eligible for transfer to a facility that can accommodate his specific needs.
[2022-10-29] MEDS: cloZAPine 100 MG TAB PO SCH (23:19)
[2022-10-29] MEDS: DIVALPROEX ER 500 MG TAB.ER.24H PO SCH (23:20)
[2022-10-29] MEDS: cloZAPine 25 MG TAB PO SCH (23:20)
[2022-10-30] MEDS: LORazepam 1 MG TAB PO PRN ×2 (00:15→10:18)
[2022-10-30] MEDS: diphenhydrAMINE 50 MG/ML 1 ML VIAL IM PRN (00:50)
[2022-10-30] MEDS: diphenhydrAMINE 25 MG CAP PO PRN (10:18)
[2022-10-30] MEDS: DIVALPROEX ER 500 MG TAB.ER.24H PO SCH (20:06)
[2022-10-30] MEDS: cloZAPine 100 MG TAB PO SCH (20:06)
[2022-10-30] MEDS: cloZAPine 25 MG TAB PO SCH (21:33)
[2022-10-31] MEDS: chlorproMAZINE 25 MG TAB PO PRN (02:08)
[2022-10-31] MEDS: cloZAPine 25 MG TAB PO SCH (20:25)
[2022-10-31] MEDS: DIVALPROEX ER 500 MG TAB.ER.24H PO SCH (20:25)
[2022-10-31 21:13] VITALS: RESP 18
[2022-10-31] MEDS: cloZAPine 100 MG TAB PO SCH (21:13)
[2022-11-01] MEDS ORDERED: LORazepam 2 MG/ML INJ IM PRN (10:33)
[2022-11-01] MEDS ORDERED: diphenhydrAMINE 25 MG CAP PO PRN (10:33)
[2022-11-01] MEDS ORDERED: chlorproMAZINE 25 MG TAB PO PRN (10:33)
[2022-11-01] MEDS ORDERED: chlorproMAZINE 25 MG/ML 2 ML AMP IM PRN (10:34)
[2022-11-01] MEDS ORDERED: diphenhydrAMINE 50 MG/ML 1 ML VIAL IM PRN (10:34)
[2022-11-01] MEDS: LORazepam 1 MG TAB PO PRN ×2 (10:43→22:34)
[2022-11-01] MEDS ORDERED: cloZAPine 25 MG TAB PO SCH (20:00)
[2022-11-01] MEDS ORDERED: cloZAPine 100 MG TAB PO SCH (20:00)
[2022-11-01] MEDS ORDERED: DIVALPROEX ER 500 MG TAB.ER.24H PO SCH (20:00)
--- NOTE | 2022-11-02 12:50 | P.PN ---
Progress Note - Text Progress Note Date: 11/02/22 Interval History: Patient was seen sleeping in bed without any agitated behavior. As per discussion with the patient's sitter and nurse, the patient continues to sleep calmly in bed. Patient continues to not display any acute behaviors. He did take when necessary medication of Ativan and Thorazine when he attempted to enter the nursing station and was informed that he could not. However, during this hospitalization, he has been able to accompany his sitter to walk around emergency department and look at [place] trees in the lobby. He has been in adherent with his medication. Overall, the patient is not presenting with criteria for inpatient psychiatric admission. Mental Status Exam: General Appearance: Patient appears to be stated age is alert, directable, but unable to cooperate. Patient appears to have fair hygiene and is sleeping peacefully. Behavior: Patient is currently sleeping peacefully Speech: Patient is nonverbal. Mood/Affect: Patient mood cannot be verbalized. Suicidality/Homicidality: Unable to assess. Perceptions:Unable to assess. Though content/process: Unable to assess. Memory and concentration: Unable to assess. Judgment and insight: Very poor at baseline Assessment Autism spectrum disorder with agitated behaviors Plan: -At this time, the patient is not presented with any acute behaviors that would warrant further intensive care. He had intermittent episodes of agitation that has been addressed and he has been directable by staff. The patient currently does not meet criteria for inpatient psychiatric admission. -Patient DOES NOT have decision making capacity at this time and is unable to reason through and communicate/appreciate the risks, benefits and alternatives to treatment. -Would recommend the following medication changes/additions: Continue Clozaril 225 mg at bedtime for behaviors Continue Depakote 1500 mg at bedtime for behaviors Recommend PRN ativan 2 mg PO TID to be managed by outpatient provider. -Patient is cleared psychiatrically for discharge. Recommend outpatient psychiatric follow-up.
[2022-11-02 13:18] VITALS: BP 108/78; PULSE 104; TEMP 98.1
== END 2022-11-02 13:17 | disposition home or self-care (01) ==
LOC: EC 16:13
DX: F41.9 Anxiety disorder, unspecified (principal); F91.9 Conduct disorder, unspecified; Z20.822 Contact with and (suspected) exposure to COVID-19; Z88.8 Allergy status to other drugs, medicaments and biological substances
CPT/HCPCS: 99285; 96372 ×8; 36415; 80159; 80053; 85025; 87636; 71045; G0480; J2060 ×2; J1200 ×3; J3230 ×2; S0136 ×13; J3486; 80320

== ENCOUNTER 2022-11-05 08:54 | Emergency (ER) | payer MEDICARE, OTHER ==
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
[2022-11-06] MEDS ORDERED: ZIPRASIDONE 20 MG VIAL IM STA (01:28)
[2022-11-06] MEDS: diphenhydrAMINE 50 MG CAP PO PRN (01:30)
[2022-11-06] MEDS ORDERED: DOCUSATE 100 MG CAP PO PRN (02:00)
[2022-11-06] MEDS ORDERED: chlorproMAZINE 25 MG TAB PO PRN (02:00)
[2022-11-06] MEDS: LORazepam 1 MG TAB PO PRN (04:18)
[2022-11-06] MEDS ORDERED: NON FORMULARY DRUG (Clindamycin Phosphate [Cleocin T 1%] 60 ML Lotion) TOPICAL PRN (09:00)
[2022-11-06] MEDS: FLUTICASONE 50MCG/SPRAY NASAL 16GM EA NOSTRIL SCH (10:06)
[2022-11-06] MEDS: MUPIROCIN 2% OINT 22 GM TUBE TOPICAL SCH ×2 (10:06→23:17)
[2022-11-06] MEDS: CEFDINIR 300 MG CAP PO SCH (10:07)
[2022-11-06] MEDS: LORATADINE 10 MG TAB PO SCH (10:07)
[2022-11-06] MEDS: TRIAMCINOLONE 0.1% CREAM 80 GM TUBE TOPICAL SCH ×2 (10:08→23:16)
[2022-11-06] MEDS: NON FORMULARY DRUG (Acetylcysteine [Nac] 600 MG Tablet) PO SCH (10:09)
[2022-11-06] MEDS: FOLIC ACID-VIT B COMPLEX-VIT C 1 CAP PO SCH (10:10)
[2022-11-06] MEDS: cloZAPine 100 MG TAB PO SCH (23:15)
[2022-11-06] MEDS: DIVALPROEX ER 500 MG TAB.ER.24H PO SCH (23:15)
[2022-11-06] MEDS: BETAMETHASONE DIPROPIONATE 0.05% CREAM 15 GM TUBE TOPICAL PRN (23:17)
[2022-11-07] MEDS: NON FORMULARY DRUG (Acetylcysteine [Nac] 600 MG Tablet) PO SCH ×2 (07:09→11:11)
[2022-11-07] MEDS: CEFDINIR 300 MG CAP PO SCH (07:09)
[2022-11-07] MEDS: cloZAPine 25 MG TAB PO SCH (07:10)
[2022-11-08] MEDS: DIVALPROEX ER 500 MG TAB.ER.24H PO SCH ×2 (01:15→20:26)
[2022-11-08] MEDS: NON FORMULARY DRUG (Acetylcysteine [Nac] 600 MG Tablet) PO SCH ×3 (01:15→20:12)
[2022-11-08] MEDS: cloZAPine 25 MG TAB PO SCH (01:50)
[2022-11-08] MEDS: cloZAPine 100 MG TAB PO SCH (01:50)
[2022-11-08] MEDS: FLUTICASONE 50MCG/SPRAY NASAL 16GM EA NOSTRIL SCH ×2 (01:55→08:24)
[2022-11-08] MEDS: LORATADINE 10 MG TAB PO SCH ×2 (01:55→08:28)
[2022-11-08] MEDS: FOLIC ACID-VIT B COMPLEX-VIT C 1 CAP PO SCH ×2 (01:55→08:35)
[2022-11-08] MEDS: CEFDINIR 300 MG CAP PO SCH ×3 (01:55→20:12)
[2022-11-08] MEDS: MUPIROCIN 2% OINT 22 GM TUBE TOPICAL SCH ×3 (01:56→20:12)
[2022-11-08] MEDS: TRIAMCINOLONE 0.1% CREAM 80 GM TUBE TOPICAL SCH ×3 (01:56→20:12)
[2022-11-08] MEDS: BETAMETHASONE DIPROPIONATE 0.05% CREAM 15 GM TUBE TOPICAL PRN (08:25)
[2022-11-08] MEDS: diphenhydrAMINE 50 MG CAP PO PRN ×2 (12:20→20:26)
[2022-11-08] MEDS: LORazepam 1 MG TAB PO PRN ×2 (12:20→20:25)
[2022-11-08] MEDS ORDERED: chlorproMAZINE 25 MG/ML 2 ML AMP IM PRN (14:52)
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
[2022-11-08 15:35] LABS: Basophils # (A) 0.1 k/uL (0-0.2); Basophils % (A) 1 %; Eosinophils # (A) 0.3 k/uL (0-0.7); Eosinophils % (A) 4 %; HCT 39.8 % (39.0-53.0); HGB 13.9 gm/dL (13.0-17.5); Lymphocytes # (A) 1.8 k/uL (1.0-4.8); Lymphocytes % (A) 24 %; MCH 30.2 pg (25.0-35.0); MCHC 34.9 g/dL (31.0-37.0); MCV 86.5 fL (80.0-100.0); Mean Platelet Volume 6.9; Monocytes # (A) 0.7 k/uL (0-1.0); Monocytes % (A) 9 %; Neutrophils # (A) 4.4 k/uL (1.3-7.7); Neutrophils % (A) 60 %; Platelet Count 239 k/uL (150-450); RDW 11.8 % (11.5-15.5); WBC 7.4 k/uL (3.8-10.6)
[2022-11-08] MEDS: chlorproMAZINE 25 MG TAB PO PRN (20:26)
[2022-11-08] MEDS: LITHIUM CARBONATE 300 MG CAP PO SCH (20:28)
[2022-11-08] MEDS ORDERED: cloZAPine 100 MG TAB PO SCH (21:00)
[2022-11-09] MEDS: CEFDINIR 300 MG CAP PO SCH ×3 (00:13→07:58)
[2022-11-09] MEDS: NON FORMULARY DRUG (Acetylcysteine [Nac] 600 MG Tablet) PO SCH ×2 (07:21→20:32)
[2022-11-09] MEDS ORDERED: diphenhydrAMINE 50 MG CAP PO PRN (07:51)
[2022-11-09] MEDS ORDERED: LORazepam 1 MG TAB PO PRN (07:52)
[2022-11-09] MEDS ORDERED: DOCUSATE 100 MG CAP PO PRN (07:52)
[2022-11-09] MEDS: LORATADINE 10 MG TAB PO SCH (07:59)
[2022-11-09] MEDS: MUPIROCIN 2% OINT 22 GM TUBE TOPICAL SCH ×2 (07:59→20:34)
[2022-11-09] MEDS: TRIAMCINOLONE 0.1% CREAM 80 GM TUBE TOPICAL SCH ×2 (07:59→20:33)
[2022-11-09] MEDS: FLUTICASONE 50MCG/SPRAY NASAL 16GM EA NOSTRIL SCH (07:59)
[2022-11-09] MEDS: FOLIC ACID-VIT B COMPLEX-VIT C 1 CAP PO SCH (07:59)
[2022-11-09] MEDS: DIVALPROEX ER 500 MG TAB.ER.24H PO SCH (20:31)
[2022-11-09] MEDS: LITHIUM CARBONATE 300 MG CAP PO SCH (20:32)
[2022-11-09] MEDS: cloZAPine 100 MG TAB PO SCH (20:32)
[2022-11-10] MEDS: NON FORMULARY DRUG (Acetylcysteine [Nac] 600 MG Tablet) PO SCH ×2 (08:32→20:04)
[2022-11-10] MEDS: MUPIROCIN 2% OINT 22 GM TUBE TOPICAL SCH ×2 (08:38→21:20)
[2022-11-10] MEDS: CEFDINIR 300 MG CAP PO SCH ×2 (08:38→21:55)
[2022-11-10] MEDS: LORATADINE 10 MG TAB PO SCH (08:39)
[2022-11-10] MEDS: FLUTICASONE 50MCG/SPRAY NASAL 16GM EA NOSTRIL SCH (08:39)
[2022-11-10] MEDS: FOLIC ACID-VIT B COMPLEX-VIT C 1 CAP PO SCH (08:40)
--- NOTE | 2022-11-10 14:29 | P.PN ---
Progress Note - Text Progress Note Date: 11/10/22 Interval History: Patient was seen today for psychiatric follow-up. Patient was noted to be sta nding in the middle of his room with a gown on and proceeded to walk out of the room and cervical back. He continues to be nonverbal and not following appeals writer's directions. Patients sitter and nurse gave further information. They have stated the patient has not been sleeping well. Patient has been taking his medications. Patient has been eating his meals as well. no prns have been given in the past 1-2 days for agitation. unable to assess SI or Hi or Ah or VH. Mental Status Exam: General Appearance: Patient appears to be stated age is alert, but unable to cooperate. Patient appears to have fair hygiene and wearing hospital gown. Patient is standing in his room. Behavior: Patient is currently stabnding in his room. Speech: Patient is nonverbal. Mood/Affect: Patient reports their mood cannot be verbalized. Affect is somnolent. Suicidality/Homicidality: Unable to assess. Perceptions:Unable to assess. Though content/process: Unable to assess. Memory and concentration: Unable to assess. Judgment and insight: Very poor at baseline IMPRESSIONS: Autism spectrum disorder with agitated behaviors Plan: -At this time patient DOES NOT meet criteria for inpatient treatment at a hospit [place] and can continue following up at [facility] looking back into group homes for patient, he previously was coming from [facility]. -Patient DOES NOT have decision making capacity at this time and is unable to reason through and communicate/appreciate the risks, benefits and alternatives to treatment. -Would recommend the following medication changes/additions: clozaril to 400 mg at bedtime for behaviors as per order by Dr Porras and being gradually increased. Continue Depakote 1500 mg at bedtime for behaviors, lithium 300 mg qhs for mood stabilization. added trazodone 100 mg qhs for insomnia, will likely need to titrate up as needed PRNs for agitation: thorazine prn, ativan, benadryl -Will continue to follow along if needed
[2022-11-10] MEDS: TRIAMCINOLONE 0.1% CREAM 80 GM TUBE TOPICAL SCH (21:20)
[2022-11-10] MEDS: cloZAPine 100 MG TAB PO SCH (21:56)
[2022-11-10] MEDS: traZODone HCL 100 MG TAB PO SCH (21:56)
[2022-11-10] MEDS: DIVALPROEX ER 500 MG TAB.ER.24H PO SCH (21:56)
[2022-11-11] MEDS: NON FORMULARY DRUG (Acetylcysteine [Nac] 600 MG Tablet) PO SCH ×2 (07:36→23:17)
[2022-11-11] MEDS: chlorproMAZINE 25 MG TAB PO PRN (08:00)
[2022-11-11] MEDS: LORATADINE 10 MG TAB PO SCH (08:00)
[2022-11-11] MEDS: CEFDINIR 300 MG CAP PO SCH ×2 (08:00→23:19)
[2022-11-11] MEDS: MUPIROCIN 2% OINT 22 GM TUBE TOPICAL SCH ×2 (08:01→23:33)
[2022-11-11] MEDS: BETAMETHASONE DIPROPIONATE 0.05% CREAM 15 GM TUBE TOPICAL PRN (08:01)
[2022-11-11] MEDS: FLUTICASONE 50MCG/SPRAY NASAL 16GM EA NOSTRIL SCH (08:01)
[2022-11-11] MEDS: TRIAMCINOLONE 0.1% CREAM 80 GM TUBE TOPICAL SCH ×2 (08:01→23:34)
[2022-11-11] MEDS: FOLIC ACID-VIT B COMPLEX-VIT C 1 CAP PO SCH (08:03)
[2022-11-11] MEDS ORDERED: cloZAPine 100 MG TAB PO SCH ×2 (21:00)
[2022-11-11] MEDS: LITHIUM CARBONATE 300 MG CAP PO SCH (23:19)
[2022-11-11] MEDS: traZODone HCL 100 MG TAB PO SCH (23:19)
[2022-11-11] MEDS: DIVALPROEX ER 500 MG TAB.ER.24H PO SCH (23:19)
[2022-11-11 23:32] VITALS: RESP 18; TEMP 98.5
[2022-11-12] MEDS ORDERED: diphenhydrAMINE 50 MG CAP PO PRN (07:55)
[2022-11-12] MEDS ORDERED: DOCUSATE 100 MG CAP PO PRN (07:57)
[2022-11-12] MEDS ORDERED: LORazepam 1 MG TAB PO PRN (07:58)
[2022-11-12] MEDS ORDERED: LORATADINE 10 MG TAB PO SCH (08:00)
[2022-11-12] MEDS: CEFDINIR 300 MG CAP PO SCH (08:08)
[2022-11-12] MEDS: NON FORMULARY DRUG (Acetylcysteine [Nac] 600 MG Tablet) PO SCH (08:10)
[2022-11-12] MEDS: FLUTICASONE 50MCG/SPRAY NASAL 16GM EA NOSTRIL SCH (08:10)
[2022-11-12] MEDS: MUPIROCIN 2% OINT 22 GM TUBE TOPICAL SCH (08:11)
[2022-11-12] MEDS: TRIAMCINOLONE 0.1% CREAM 80 GM TUBE TOPICAL SCH (08:12)
[2022-11-12] MEDS: FOLIC ACID-VIT B COMPLEX-VIT C 1 CAP PO SCH (09:55)
[2022-11-12 11:06] VITALS: BP 132/78; PULSE 102
--- NOTE | 2022-11-12 12:07 | P.PN ---
Progress Note - Text Progress Note Date: 11/12/22 Interval History: Patient was seen today for psychiatric follow-up. Patient's nurse had no conc erns about patient and he has been doing fairly well. No Thorazine has been given since yesterday morning the patient has been apparently more directable according to staff. Patient has been taking his medications and eating. Patient was increased to 400 mg of Clozaril as per [facility]'s order. Patient will likely be going back to [facility] today and continue be followed by [facility]. Patient was laying in bed and sleeping this morning and continues to be nonverbal with senior copywriter. unable to assess SI or Hi or Ah or VH. Mental Status Exam: General Appearance: Patient appears to be stated age is alert, but unable to cooperate. Patient appears to have fair hygiene and wearing hospital gown. Patient is standing in his room. Behavior: Patient is currently laying in his bed Speech: Patient is nonverbal. Mood/Affect: Patient reports their mood cannot be verbalized. Affect is somnolent. Suicidality/Homicidality: Unable to assess. Perceptions:Unable to assess. Though content/process: Unable to assess. Memory and concentration: Unable to assess. Judgment and insight: Very poor at baseline IMPRESSIONS: Autism spectrum disorder with agitated behaviors Plan: -At this time patient DOES NOT meet criteria for inpatient treatment at a hospital and can continue following up at [facility] -senior copywriter spoke with [facility] case investigator today in the ER and relayed plan in prep for d/c today back [facility]. -Patient DOES NOT have decision making capacity at this time and is unable to reason through and communicate/appreciate the risks, benefits and alternatives to treatment. -Would recommend the following medication changes/additions: clozaril 400 mg at bedtime for behaviors as per order by Dr Porras. Continue Depakote 1500 mg at bedtime for behaviors, lithium 300 mg qhs for mood stabilization. trazodone 100 mg qhs for insomnia. PRNs for agitation: thorazine PO prn 100 mg daily for agitation. -At this time psychiatry will sign off and he will continue to be followed closely by [facility].
[2022-11-12] MEDS ORDERED: DIVALPROEX ER 500 MG TAB.ER.24H PO SCH (20:00)
[2022-11-12] MEDS ORDERED: cloZAPine 100 MG TAB PO SCH (21:00)
[2022-11-12] MEDS ORDERED: traZODone HCL 100 MG TAB PO SCH (21:00)
== END 2022-11-12 11:06 | disposition home or self-care (01) ==
LOC: EC 08:54
DX: F91.9 Conduct disorder, unspecified (principal); F41.9 Anxiety disorder, unspecified; Z88.8 Allergy status to other drugs, medicaments and biological substances; Z20.822 Contact with and (suspected) exposure to COVID-19
CPT/HCPCS: 82075; 99285; 96372 ×2; S0136 ×5; J3486

== ENCOUNTER 2023-07-30 13:34 | Emergency (ER) | payer MEDICARE, OTHER ==
[2023-07-30 13:58] VITALS: BP 111/65; PULSE 114; RESP 20; TEMP 98
[2023-07-30] MEDS ORDERED: LORazepam 2 MG/ML INJ IM STA (14:02)
[2023-07-30] MEDS ORDERED: LIDOCAINE 1% INJ 10MG/ML (20 ML MDV) SQ ONE (14:02)
--- NOTE | 2023-07-30 14:06 | ED ---
General Adult HPI - General Chief complaint: Head Injury Stated complaint: Head Injury Time Seen by Provider: 07/30/23 13:54 Source: patient, RN notes reviewed, old records reviewed Mode of arrival: ambulatory Limitations: no limitations - History of Present Illness Initial comments: 42-year-old male with head injury. Patient was struck in the head by a metal paper towel [place]. He had a laceration noted to the forehead. No loss consciousness. Patient has history of autism and is presenting from a usp. - Related Data Home Medications Medication Instructions Recorded Confirmed Acetylcysteine [Nac] 1,200 mg PO BID@0800,199907/08/22 01/02/23 Cetirizine HCl [Zyrtec] 10 mg PO DAILY@0807/08/22 01/02/23 Fluocinonide 0.05% [Lidex 0.05% 1 applic TOPICAL BID PRN 07/08/22 01/02/23 cream] Fluticasone Nasal [place] [Flonase 2 spr EA NOSTRIL DAILY@79907/08/22 01/02/23 Nasal [place]] Mupirocin 2% Oint [Bactroban 2% 1 applic TOPICAL BID@08,199907/08/22 01/02/23 Oint] Vitamin B Complex 1 cap PO DAILY@0800 07/08/22 01/02/23 cefaCLOR [Ceclor] 500 mg PO BID@0800,199907/08/22 01/02/23 Clindamycin Phosphate [Cleocin T 1 applic TOPICAL BID PRN 10/18/22 01/02/23 1%] Docusate [Colace] 100 mg PO BID PRN 10/18/22 01/02/23 Triamcinolone 0.025% Cream 1 applic TOPICAL BID@08,199911/05/22 01/02/23 [Kenalog 0.025% Cream] ARIPiprazole [Abilify] 5 mg PO HS@199901/02/23 01/02/23 LORazepam [Ativan] 1 mg PO Q4H PRN MDD 8mg 01/02/23 01/02/23 [place] Carbonate 300 mg PO HS@199901/02/23 01/02/23 cloNIDine HCL [Catapres] 0.1 mg PO TID@0800,1300,1700 01/02/23 01/02/23 cloZAPine [Clozaril] 400 mg PO HS@199901/02/23 01/02/23 Previous Rx's Medication Instructions Recorded Divalproex ER [Depakote ER] 1,500 mg PO HS@1999 30 Days #90 tab 11/12/22 Allergies Allergy/AdvReac Type Severity Reaction Status Date / Time hay fever Allergy Unknown Uncoded 01/02/23 21:35 Review of Systems ROS Statement: Those systems with pertinent positive or pertinent negative responses have been documented in the HPI. ROS Other: All systems not noted in ROS Statement are negative. Past Medical History Past Medical History: Unable to Obtain Additional Past Medical History / Comment(s): Autism History of Any Multi-Drug Resistant Organisms: None Reported Past Surgical History: No Surgical Hx Reported Past Psychological History: Anxiety Smoking Status: Never smoker Past Alcohol Use History: None Reported Past Drug Use History: None Reported General Exam Limitations: no limitations General appearance: alert, in no apparent distress Head exam: Present: other (Mid frontal forehead laceration measuring 3 cm) Neck exam: Present: normal inspection. Absent: tenderness, meningismus Respiratory exam: Present: normal lung sounds bilaterally. Absent: respiratory distress, wheezes Cardiovascular Exam: Present: regular rate, normal rhythm GI/Abdominal exam: Present: soft. Absent: distended, tenderness, guarding Extremities exam: Present: normal inspection, normal capillary refill Neurological exam: Present: alert Skin exam: Present: other (Laceration as above) Course Vital Signs 07/30/23 13:51 Temperature 98 F Pulse Rate 114 H Respiratory 20 Rate Blood Pressure 111/65 O2 Sat by Pulse 98 Oximetry Procedures - Laceration Laceration #1 Consent Obtained: emergent situation Indication: laceration Site: face Size (cm): 3 Description: linear Depth: simple, single layer Anesthetic Used: lidocaine 1% Anesthesia Technique: local infiltration Amount (mls): 5 Pre-repair: wound explored, irrigated extensively, deep structures intact Type of Sutures: other (Skin adhesive) Size of Sutures: other (Skin adhesive) Number of Sutures: 4 Patient Tolerated Procedure: well Medical Decision Making - Medical Decision Making Was pt. sent in by a medical professional or institution (, PA, LEAD INFORMATICA DEVELOPER, urgent care, hospital, or senior living...) When possible be specific @ -No Did you speak to anyone other than the patient for history (EMS, parent, family, police, friend...)? What history was obtained from this source @ -No Did you review nursing and triage notes (agree or disagree)? Why? @ -I reviewed and agree with nursing and triage notes Were old charts reviewed (outside hosp., previous admission, EMS record, old EKG, old radiological studies, urgent care reports/EKG's, senior living records)? Report findings @ -No old charts were reviewed Differential Diagnosis (chest pain, altered mental status, abdominal pain women, abdominal pain men, vaginal bleeding, weakness, fever, dyspnea, syncope, headache, dizziness, GI bleed, back pain, seizure, CVA, palpatations, mental health, musculoskeletal)? @ Facial laceration EKG interpreted by me (3pts min.). @ -As above X-rays interpreted by me (1pt min.). @ -None done CT interpreted by me (1pt min.). @ -None done U/S interpreted by me (1pt. min.). @ -None done What testing was considered but not performed or refused? (CT, X-rays, U/S, labs)? Why? @ -None What meds were considered but not given or refused? Why? @ -None Did you discuss the management of the patient with other professionals (professionals i.e. , PA, LEAD INFORMATICA DEVELOPER, lab, RT, psych nurse, social research assistant, quality assurance group leader, teacher, co founder and chief strategy officer, case management manager)? Give summary @ -No Was smoking cessation discussed for >3mins.? @ -No Was critical care preformed (if so, how long)? @ -No Were there social determinants of health that impacted care today? How? (Homelessness, low income, unemployed, alcoholism, drug addiction, transportation, low edu. Level, literacy, decrease access to med. care, retirement, rehab)? @ -No Was there de-escalation of care discussed even if they declined (Discuss DNR or withdrawal of care, Hospice)? DNR status @ -No What co-morbidities impacted this encounter? (DM, HTN, Smoking, COPD, CAD, Cancer, CVA, ARF, Chemo, Hep., AIDS, mental health diagnosis, sleep apnea, morbid obesity)? @ -[Autism Was patient admitted / discharged? Hospital course, mention meds given and route, prescriptions, significant lab abnormalities, going to OR and other pertinent info. @ -[42-year-old male with forehead laceration. Laceration is repaired with skin adhesive Undiagnosed new problem with uncertain prognosis? @ -No Drug Therapy requiring intensive monitoring for toxicity (Heparin, Nitro, Insulin, Cardizem)? @ -No Were any procedures done? @ -[Yes, laceration repair Diagnosis/symptom? @ Forehead laceration Acute, or Chronic, or Acute on Chronic? @ -[Acute Uncomplicated (without systemic symptoms) or Complicated (systemic symptoms)? @ -default Side effects of treatment? @ -No Exacerbation, Progression, or Severe Exacerbation? @ -No Poses a threat to life or bodily function? How? (Chest pain, [place], [place], pneumonia, PE, COPD, DKA, ARF, appy, cholecystitis, CVA, Diverticulitis, Homicidal, Suicidal, threat to staff... and all critical care pts) @ -No Disposition Clinical Impression: Forehead laceration Disposition: HOME SELF-CARE Condition: Good Instructions (If sedation given, give patient instructions): Facial Laceration (ED), Skin Adhesive Care (ED) Is patient prescribed a controlled substance at d/c from ED?: No Referrals: Sammy Gatica MD [Primary Care Provider] - 1-2 days Time of Disposition: 15:00
[2023-07-30] MEDS ORDERED: LIDOCAINE/EPINEPHR/TETRACAINE 5 ML BOTTLE TOPICAL ONE (14:21)
== END 2023-07-30 15:23 | disposition home or self-care (01) ==
LOC: EC 13:34
DX: S01.81XA Laceration without foreign body of other part of head, initial encounter (principal); F41.9 Anxiety disorder, unspecified; Z79.899 Other long term (current) drug therapy; Z88.8 Allergy status to other drugs, medicaments and biological substances; W22.8XXA Striking against or struck by other objects, initial encounter
CPT/HCPCS: 99283; 96372; 12013; J2060; J2001